=== PATIENT | male | born 1950 | race Caucasian/White ===

== ENCOUNTER 2018-09-29 12:54 | Inpatient (IN) ==
[2018-09-29] MEDS ORDERED: Naloxone 0.4 MG/ML INJ IVP PRN (15:47)
[2018-09-29] MEDS ORDERED: D5% in Water 1,000 ML IVC PRN (16:05)
[2018-09-29] MEDS ORDERED: Dextrose Gel 15 GM/37.5 ML TUBE PO PRN ×2 (16:05)
[2018-09-29] MEDS ORDERED: *HR* Dextrose 50 % in Water (Syg) 50 ML SYRINGE IVP PRN (16:05)
[2018-09-29 16:46] LABS: Hematocrit 27.1 % (37.5-50.1); Hemoglobin 8.3 g/dL (12.9-16.9)
--- NOTE | 2018-09-29 17:16 | Internal Med History&Physical ---
Date of Encounter: 09/29/18 Time of Encounter: 17:13 Internal Medicine - H&P: HPI Chief complaint: Weak; Hb of 7.2 Admitted From: Home Plans for Post Hospital Care: Home History of present illness: The patient is a 68-year-old male. It was today morning he woke up with difficulty breathing; his blood pressure was around 190 systolic. His gave him extra tablets for blood pressure control; in addition to his regular pills. He continued to be very weak; with dyspnea on exertion (when doing regular walking). He developed a weakness in his legs. Then, he was brought to [facility] emergency department for evaluation and treatment. He was recently hospitalized in our hospital with a suspected GI bleeding. Received a couple units of packed red blood cells. Upper and lower endoscopy was done. They did not show any source of bleeding. Diverticulosis of colon was found. The patient has had underlying adrenal insufficiency. He takes prednisone at 20 mg by mouth twice a day. He received 10 mg of dexamethasone in [place]. CT angiography of the chest has been done. It showed multifocal pneumonia. The patient received 1 dose of vancomycin and 1 dose of Levaquin. He has not had any fever or chills recently. Denies coughing and wheezing. He has not noticed any changes in his bowel movements pattern; have not seen any blood or black discoloration of stool recently. He denies urinary symptoms. PAST MEDICAL HX: He has had insulin-dependent type 2 diabetes mellitus, hypertension and diastolic heart failure. 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 He has a pacemaker inserted. PAST FAMILY HX: Positive for type 2 diabetes mellitus and hypertension. PAST SOCIAL HX: He has never used tobacco. Denies alcohol and illicit drug use. REVIEW OF SYSTEMS: All 14 organ systems were reviewed by me with the patient. Positive and pertinent negative findings are listed above. The rest of organ systems is negative. PHYSICAL EXAM: Skin: Free of rash and discoloration. Eyes: Sclera is white. There is no discharge from eyes. ENMT: Oral/pharyngeal mucosa is normal in appearance. There is no discharge from nose or ears. Respiratory: Normal breath sounds with no crackles and wheezes bilaterally. CV: Heart is regular with no gallop or murmur. GI: Abdomen is flat and soft with no palpable mass or visceromegaly. : There is no tenderness in patient's flanks bilaterally. Neuro exam: He has good strength in upper and lower extremities. He has normal eye movements. Psychiatric: He has normal affect. His thought process is appropriate to the situation. ADDITIONAL DATA: The patient had multiple blood tests done in [place]. The most important results are mentioned below. Hemoglobin was 7.2; was 9.0 on 09/20 (when he was leaving the hospital after previous hospitalization). He received 1 unit of packed red blood cells in [facility] emergency roomrepeated hemoglobin is 8.3. WBC was 9.5 thousand with platelet count of 90,000 (was 116,000 on 09/20). Pro time INR was 1.2. D-dimer was 4238. VBG was done. It showed pH of 7.52 with PCO2 of 25 and PO2 of 152. Electrolytes were normal. Creatinine was 1.08. Random glucose was 100. Liver function tests were normal. Troponin was checked it was 0.12. He had troponin of 0.35 on 09/17when she was here with severe anemia. Troponin was 0.15, when he was leaving the hospital from previous hospitalization. UA showed some blood. He did not show any features suggesting urinary tract infection. Chest x-ray showed new right lower lobe infiltrate (possible pneumonia). CT angiogram showed features of multifocal pneumonia; no evidence for pulmonary emboli. A/P: Symptomatic anemia. Possible GI bleed. The patient was transfused with 1 unit of packed red blood cells. I will be watching his H&H every 6 hours. I will present him to GI service tomorrow morning (when they are available). The patient will be on IV Protonix at 40 mg every 12 hours. He will be on clear liquids; will get him into and by mouth diet after midnight. He may have multifocal pneumonia. However he does not have any symptoms suggesting that diagnosis. Like I fever, chills or coughing/wheezing. However, he has had off and on chills for a few weeks. He is not hypoxic. I will continue IV vancomycin and IV Levaquin/Zithromaxstarted in [place]. He may have acute on chronic diastolic heart failure. He has high BNP of 1006. I will give him 1 dose of IV Lasix. I will repeat chest x-ray in the morning. He does have long-standing adrenal insufficiency secondary to [place]'s disease. He received 10 mg of dexamethasone. I will continue his prednisone at 10 mg by mouth twice a day. Type 2 diabetes mellitus, insulin-dependent. He will be on decreased dose of Levemir and when necessary Humalog. Past Med Surg Social Fam HX - Past Medical History Medical history: diabetes, hypertension, other Additional medical history: leyla's disease, pacemaker, stroke (2013) Psychiatric history: no psych history - Past Surgical History Surgical History: appendectomy, cholecystectomy Additional surgical history: neck surgery, eye surgery, kidney stone, bilat knee surgery, hernia surgery, lymph nodes removed - Social History Smoking Status: Never smoker Smokeless Tobacco Status: No Alcohol use: none Drug use: none Internal Medicine - H&P: Meds Carvedilol [Coreg] 12.5 mg PO BID 09/17/18 [History] Ergocalciferol (VITAMIN D2) [Vitamin D2] 50,000 unit PO WILLIAMSON@0900 09/17/18 [History] HYDROcodone/Acet 5/325 mg [[place] 5-325 mg] 1 tab PO Q4H PRN 09/17/18 [History] Ibuprofen [Motrin] 800 mg PO Q8H PRN 09/17/18 [History] Insulin ASPART [NovoLOG] 10 unit SQ TIDWM 09/17/18 [History] Insulin DETEMIR [Levemir Flextouch] 10 unit SQ HS 09/17/18 [History] Isosorbide MONOnitrate (24 HR) [Imdur] 30 mg PO DAILY 09/17/18 [History] Losartan [Cozaar] 25 mg PO DAILY 09/17/18 [History] Multivit-Min/Iron/Folic Acid/K [Adults Multivitamin Caplet] 1 each PO DAILY 09/17/18 [History] Pantoprazole Sodium [Protonix] 40 mg PO DAILY 09/17/18 [History] Potassium Chloride [K-Tab ER] 10 meq PO DAILY 09/17/18 [History] Tramadol HCl [Ultram] 50 mg PO Q4H PRN 09/17/18 [History] metFORMIN [Glucophage] 500 mg PO BIDWM 09/17/18 [History] predniSONE [Prednisone] 10 mg PO BID 09/17/18 [History] Magnesium Oxide [Magnesium] 400 mg PO DAILY 09/18/18 [History] Clopidogrel [Plavix] 75 mg PO DAILY 09/29/18 [History] Allergy/AdvReac Type Severity Reaction Status Date / Time atorvastatin [From Lipitor] Allergy Muscle Pain Verified 09/17/18 15:08 methimazole Allergy Muscle Pain Verified 09/18/18 16:35 - Constitutional Vitals: Temp Pulse Resp BP Pulse Ox 97.8 F 77 17 155/78 95 09/29/18 16:11 09/29/18 16:11 09/29/18 16:11 09/29/18 16:11 09/29/18 16:11 General appearance: Present: A&O X 3, no acute distress, answers questions appropriately Exam: xx Internal Med - H&P Results - Labs CBC & Chem 7: 09/29/18 16:22 Labs: Short CBC 09/29/18 Range/Units 16:22 Hgb 8.3 L (12.9-16.9) g/dL Hct 27.1 L (37.5-50.1) % - Assessment and Plan (1) Symptomatic anemia Current Visit: Yes Status: Acute (2) GI bleed Current Visit: No Status: Suspected Qualifiers: GI bleed type/associated pathology: unspecified gastrointestinal hemorrhage type Qualified Code(s): K92.2 - Gastrointestinal hemorrhage, unspecified (3) Multifocal pneumonia Current Visit: Yes Status: Acute (4) Adrenal insufficiency Current Visit: Yes Status: Chronic (5) Acute on chronic diastolic heart failure Current Visit: Yes Status: Acute (6) Uncontrolled hypertension Current Visit: Yes Status: Acute - Time Spent With Patient Total time spent is greater than 50% in coordination of care (as documented) at patient's floor/unit and/or counseling patient: 25 - 35 minutes
[2018-09-29] MEDS: *HR* HYDROcodone/Acet 5/325 mg TABLET PO PRN ×2 (17:35→21:50)
[2018-09-29] MEDS: Insulin LISPRO 300 UNITS/3 ML VIAL SQ SCH ×2 (17:35→20:53)
[2018-09-29] MEDS ORDERED: Furosemide 40 MG TABLET PO ONE (20:26)
[2018-09-29] MEDS: Pantoprazole 40 MG VIAL IVP SCH (20:53)
[2018-09-29] MEDS ORDERED: predniSONE 10 MG TABLET PO SCH (21:00)
[2018-09-29] MEDS ORDERED: Insulin DETEMIR 100 UNIT/ML X5UNITS SQ SCH (21:00)
[2018-09-29] MEDS: predniSONE 10 MG TABLET PO SCH (21:01)
[2018-09-29 22:48] LABS: Hematocrit 25.6 % (37.5-50.1); Hemoglobin 8.2 g/dL (12.9-16.9)
[2018-09-30] MEDS: Pantoprazole 40 MG VIAL IVP SCH ×2 (04:58→17:32)
[2018-09-30 05:12] LABS: Immature Granulocytes % 0.6 % (0-4)
[2018-09-30 05:14] LABS: Hematocrit 25.4 % (37.5-50.1); Hemoglobin 7.9 g/dL (12.9-16.9); Immature Platelets 5.1 % (1.1-6.1); Lymphocytes # 1.1 K/mcL (0.6-4.6); Lymphocytes % 16.2 %; Mean Corpuscular HGB Conc 31.1 g/dL (31.6-35.5); Mean Corpuscular Hemoglobin 29.2 pg (28.0-33.3); Mean Corpuscular Volume 93.7 fL (83.0-100.0); Mean Platelet Volume 11.8 fL (9.4-12.4); Monocytes # 0.4 K/mcL (0.0-1.3); Monocytes % 5.7 %; Neutrophils # 5.1 K/mcL (1.6-8.9); Red Blood Count 2.71 M/mcL (4.19-5.50); Segmented Neutrophils % 77.5 %
[2018-09-30 05:24] LABS: Platelet Count 79 K/mcL (140-400)
[2018-09-30 05:25] LABS: Platelet Estimate Decreased (Normal)
[2018-09-30 05:31] LABS: Alanine Aminotransferase 23 Units/L (7-52); Albumin 2.6 g/dL (3.5-5.7); Alkaline Phosphatase 83 Units/L (34-104); Aspartate Amino Transferase 23 Units/L (13-39); BUN/Creatinine Ratio 33 (6-26); Bilirubin,Direct 0.1 mg/dL (0.0-0.2); Bilirubin,Indirect 0.5 mg/dL (0.0-1.2); Bilirubin,Total 0.6 mg/dL (0.3-1.0); Blood Urea Nitrogen 30 mg/dL (8-23); Calcium 8.5 mg/dL (8.6-10.3); Carbon Dioxide 23 mEq/L (23-29); Chloride 110 mEq/L (98-107); Globulin 2.5 g/dL (2.4-3.5); Glucose 159 mg/dL (70-105); Magnesium 1.6 mg/dL (1.6-2.6); Osmolality,Calculated 300 (280-300); Potassium 3.7 mEq/L (3.5-5.1); Sodium 140 mEq/L (136-145); Total Protein 5.1 g/dL (6.4-8.9); eGFR For Non-African Americans > 60 (> 60)
[2018-09-30] MEDS: Insulin LISPRO 300 UNITS/3 ML VIAL SQ SCH ×4 (09:01→22:55)
[2018-09-30] MEDS: *HR* HYDROcodone/Acet 5/325 mg TABLET PO PRN ×2 (09:07→15:21)
[2018-09-30] MEDS: Levofloxacin 500 MG/100 ML 500 MG/100 ML BAG IVPB SCH (09:07)
[2018-09-30] MEDS: predniSONE 10 MG TABLET PO SCH ×3 (09:07→20:56)
[2018-09-30] MEDS: Magnesium Oxide 400 MG TABLET PO SCH (09:07)
[2018-09-30 10:33] LABS: Hematocrit 25.2 % (37.5-50.1); Hemoglobin 7.9 g/dL (12.9-16.9)
[2018-09-30] MEDS: traMADol 50 MG TABLET PO SCH ×2 (13:03→20:56)
[2018-09-30] MEDS: Furosemide 40 MG TABLET PO SCH (15:13)
--- NOTE | 2018-09-30 16:33 | Gastroenterology Consult Note ---
<ForbesGerald kowalski Rafael - Last Filed: 09/30/18 16:31> Date of Encounter: 09/30/18 Time of Encounter: 11:10 - Assessment and plan (1) Symptomatic anemia Current Visit: Yes Status: Acute Assessment and plan: Hgb 10.1 on 3/6, 8.3 on admission, and 7.9 today. Continue to monitor CBC and transfuse PRBC as needed. Check iron, ferritin, B12, and folate. Plan for enteroscopy once stable from multifocal PNA (likely Sunday). If enteroscopy negative, consider capsule endoscopy as outpatient. (2) Multifocal pneumonia Current Visit: Yes Status: Acute Assessment and plan: Management per primary team. - Time Spent With Patient Total time spent is greater than 50% in coordination of care (as documented) at patient's floor/unit and/or counseling patient: GI History of Present Illness - Data of Consult Patient: known to practice within the last 3 years Consult date: 09/30/18 Requesting Physician: Bishop Alston - Consult Narrative Reason for consult: Recurrent GI bleed History of present illness: Mr. Avila is a 68 year old male with PMHx of DM, HTN, leyla's disease, pacemaker, CVA, who presented with weakness and dyspnea. CTA chest with multifocal pneumonia. Patient was recently admitted from 09/17 to 09/20 with GI bleed. EGD and colonoscopy completed but did not show any source of bleeding. Hgb 10.1 on 3/6, 8.3 on admission, and 7.9 today. We were consulted to evaluate for recurrent GI bleed. Procedures: EGD 09/18/2018 Dr. Fenton: Normal Colonoscopy 09/19/2017 Dr. Fenton: Diverticulosis, internal hemorrhoids, 5 mm tubular adenoma, repeat 5 years. NSAIDs: Ibuprofen Anticoagulation: Plavix Past Med Surg Social Fam HX - Past Medical History Medical history: diabetes, hypertension, other Additional medical history: leyla's disease, pacemaker, stroke (2013) Psychiatric history: no psych history - Past Surgical History Surgical History: appendectomy, cholecystectomy Additional surgical history: neck surgery, eye surgery, kidney stone, bilat knee surgery, hernia surgery, lymph nodes removed - Social History Smoking Status: Never smoker Smokeless Tobacco Status: No Alcohol use: none Drug use: none - Gastrointestinal Gastrointestinal: Present: as per HPI - Constitutional Constitutional: as per HPI - EENT Eyes: as per HPI Ears: Present: as per HPI Nose, mouth and throat: Present: as per HPI - Cardiovascular Cardiovascular ROS: Present: as per HPI - Respiratory Respiratory IM: Present: as per HPI - Genitourinary Genitourinary: Absent: change in color, Urinary frequency - Neurological ROS Neurological GI: Present: as per HPI - Hematologic/Lymphatic Hematologic/Lymphatic pediatric: Present: as per HPI - Musculoskeletal Musculoskeletal ROS GI: Present: as per HPI - Integumentary Integumentary GI: Present: as per HPI - Psychiatric ROS Psychiatric GI: Present: as per HPI - Endocrine Endocrine IM: Present: as per HPI - Constitutional Vitals: Temp Pulse Resp BP Pulse Ox 97.9 F 76 15 125/71 98 09/30/18 15:12 09/30/18 15:12 09/30/18 15:12 09/30/18 15:12 09/30/18 15:12 General appearance: Present: cooperative, A&O X 3, no acute distress, answers questions appropriately - Head Head exam: Present: atraumatic, normocephalic - Eye Eye exam: Present: normal appearance, sclera anicteric - ENT ENT exam: Present: mucous membranes moist - Neck Neck exam general surgery: Present: normal inspection, trachea midline - Respiratory Respiratory exam: Present: decreased breath sounds, CTAB. Absent: rales, rhonchi - Cardiovascular Cardiovascular exam: Present: RRR, +S1, +S2 - GI/Abdominal GI/Abdominal exam: Present: soft, no peritoneal signs. Absent: distended, firm, guarding, tenderness - Rectal Rectal exam: Present: deferred - Extremities Exam Extremities exam: Present: warm - Neurological Exam Neurological exam: Present: no focal deficits - Psychiatric Psychiatric exam: Present: normal affect, normal mood - Skin Skin exam: Present: dry, intact, normal color, warm Results - Labs CBC & Chem 7: 09/30/18 09:58 09/30/18 04:34 Labs: Last Result Calcium 8.5 mg/dL (8.6-10.3) L 09/30/18 04:34 Entire Visit Hgb 7.9 g/dL (12.9-16.9) L 09/30/18 09:58 Hct 25.2 % (37.5-50.1) L 09/30/18 09:58 Total Bilirubin 0.6 mg/dL (0.3-1.0) 09/30/18 04:34 AST 23 Units/L (13-39) 09/30/18 04:34 ALT 23 Units/L (7-52) 09/30/18 04:34 - Impressions Impressions Chest X-Ray 09/30/18 07:00 IMPRESSION: Asymmetrical right perihilar airspace disease is not significantly changed. This is favored to represent pneumonia. Left basilar opacity, atelectasis versus edema/pneumonia. An atelectatic component is greater in the interval. Small bilateral pleural effusions. D/ / Teodoro Campos MD / Teodoro Campos MD Interpreting Provider: Teodoro Campos MD Consult Discharge Plan - Plan Referrals: Pancho Westfall DO [Primary Care Provider] - <Miladis Fenton - Last Filed: 09/30/18 17:29> Date of Encounter: 09/30/18 Time of Encounter: 14:00 - Time Spent With Patient Total time spent is greater than 50% in coordination of care (as documented) at patient's floor/unit and/or counseling patient: GI History of Present Illness - Data of Consult Requesting Physician: Bishop Alston - Consult Narrative History of present illness: Mr. Avila is a 68 year old male - Constitutional Vitals: Temp Pulse Resp BP Pulse Ox 97.9 F 76 15 125/71 98 09/30/18 15:12 09/30/18 15:12 09/30/18 15:12 09/30/18 15:12 09/30/18 15:12 Results - Labs CBC & Chem 7: 09/30/18 09:58 09/30/18 04:34 Labs: Last Result Calcium 8.5 mg/dL (8.6-10.3) L 09/30/18 04:34 Iron 42 mcg/dL (65-175) L 09/30/18 16:44 % Saturation 21 % (20-55) 09/30/18 16:44 Transferrin 146 mg/dL (203-362) L 09/30/18 16:44 Entire Visit Hgb 7.9 g/dL (12.9-16.9) L 09/30/18 09:58 Hct 25.2 % (37.5-50.1) L 09/30/18 09:58 Total Bilirubin 0.6 mg/dL (0.3-1.0) 09/30/18 04:34 AST 23 Units/L (13-39) 09/30/18 04:34 ALT 23 Units/L (7-52) 09/30/18 04:34 - Impressions Impressions Chest X-Ray 09/30/18 07:00 IMPRESSION: Asymmetrical right perihilar airspace disease is not significantly changed. This is favored to represent pneumonia. Left basilar opacity, atelectasis versus edema/pneumonia. An atelectatic component is greater in the interval. Small bilateral pleural effusions. D/ / Teodoro Campos MD / Teodoro Campos MD Interpreting Provider: Teodoro Campos MD - Attending Attestation I have personally performed a face to face evaluation on this patient. I have reviewed and agree with the care plan. History and Exam by me shows: Patient seen denies any blood in the stool. On examination alert and awake abdomen is benign. Assessment: Patient with multiple comorbidities admitted because of pneumonia and also found to be anemic. Had EGD colonoscopy done in the first week of September. Still anemic with further drop in hemoglobin no overt GI bleeding. Recommendation: Iron panel along with B12 and ferritin. We will consider enteroscopy once pneumonia symptoms are better and if unremarkable then will need cap endo as out pt
[2018-09-30 17:17] LABS: % Iron Saturation 21 % (20-55); Iron 42 mcg/dL (65-175); Transferrin 146 mg/dL (203-362)
[2018-09-30 17:35] LABS: Ferritin 714 ng/mL (20-250)
[2018-09-30 17:42] LABS: Folate > 22.3 ng/mL (3.0-16.0); Vitamin B12 317 pg/mL (250-1100)
[2018-09-30 19:16] LABS: Bilirubin,Urine Negative (Negative); Blood,Urine Large (Negative); Clarity,Urine Clear (Clear); Color,Urine Yellow (Yellow); Glucose,Urine (UA) Normal (Normal); Ketones,Urine Negative (Negative); Leukocyte Esterase,Urine Small (Negative); Nitrite,Urine Negative (Negative); PH,Urine 5.5 pH Units (5.0-8.0); Protein,Urine 30 mg/dL (Neg-Trace); Specific Gravity,Urine 1.029 (1.010-1.025); Urobilinogen,Urine Normal (Normal)
[2018-09-30 19:21] LABS: Hyaline Casts,Urine None Seen per lpf (None-Few); Squamous Epithelial Cell,Urine Moderate per lpf (None-Few)
[2018-09-30 19:43] LABS: Bacteria,Urine Few per hpf (None-Few); RBC,Urine 15-30 per hpf (0-3)
[2018-09-30] MEDS: Insulin DETEMIR 100 UNIT/ML X5UNITS SQ SCH (20:56)
--- NOTE | 2018-09-30 23:29 | Internal Med Progress Note ---
Hospitalist Progress Note - Encounter Date of Encounter: 09/30/18 Time of Encounter: 19:00 - Subjective Interval History: SUBJECTIVE: The patient feels pretty good. He has been advanced to diabetic diet today afternoonafter evaluation by GI service. Denies abdominal pain, nausea and vomiting. His last bowel movement was yesterday afternoonhe did not see any blood in the stool. Denies chest pain. Denies difficulty breathing; on room air oxygen. He does not have any coughing or wheezing. OBJECTIVE: Skin: Free of rash and discoloration. ENMT: Oral/pharyngeal mucosa is normal in appearance. Eyes: Sclera is white. There is no discharge from eyes. Respiratory: Normal breath sounds; no crackles or wheezes. CV: Heart is regular; no gallop or murmur. GI: Abdomen is soft and not tender. There is no palpable mass or visceromegaly. Neuro: There is no focal deficits. ADDITIONAL DATA: Hemoglobin is 7.9; 8.3 at admission (after transfusing him with 1 unit of packed red blood cells). Normal WBC. Platelet count is 79,000; he has chronic thrombocytopenia. Electrolytes are normal. Creatinine is 0.92. Fasting glucose is 159. ASSESSMENT AND PLAN: Symptomatic anemia/possible GI bleeding. See notes from GI service. They would like to do enteroscopy, when patient is medically stable. To monitor CBC closely. Imaging studies are suggesting diagnosis of multifocal pneumonia. Clinically, the patient does not have any symptoms/signs to support that diagnosis. He is on IV vancomycin and IV Levaquin. Adrenal insufficiency. He got 10 mg of dexamethasone before this admission. To continue prednisone at 10 mg by mouth 3 times a day (was taking 10 mg by mouth twice a day at home). Acute on chronic diastolic heart failure. I feel, that the changes on imaging studies could be caused by pulmonary congestion. I will keep him on daily Lasix and mild fluid restriction. I will repeat chest x-ray in 1-2 days. Uncontrolled hypertension. We will do adjustments to her antihypertensives. - Exam Vitals: Temp Pulse Resp BP Pulse Ox 98.2 F 77 15 139/72 97 09/30/18 22:44 09/30/18 22:44 09/30/18 22:44 09/30/18 22:44 09/30/18 22:44 Exam: xx - Assessment and Plan (1) Symptomatic anemia Current Visit: Yes Status: Acute (2) GI bleed Current Visit: No Status: Suspected (3) Multifocal pneumonia Current Visit: Yes Status: Acute (4) Adrenal insufficiency Current Visit: Yes Status: Chronic (5) Acute on chronic diastolic heart failure Current Visit: Yes Status: Acute (6) Uncontrolled hypertension Current Visit: Yes Status: Acute - Time Spent with Patient Total time spent is greater than 50% in coordination of care (as documented) at patient's floor/unit and/or counseling patient: 25 - 35 minutes Plan of Care Discussed with: patient Internal Medicine: Result - Labs CBC & Chem 7: 09/30/18 09:58 09/30/18 04:34 Labs: Short CBC 09/30/18 09/30/18 Range/Units 04:34 09:58 WBC 6.6 (4.3-11.1) K/mcL Hgb 7.9 L 7.9 L (12.9-16.9) g/dL Hct 25.4 L 25.2 L (37.5-50.1) % Plt Count 79 L (140-400) K/mcL Neutrophils # 5.1 (1.6-8.9) K/mcL BMP 09/30/18 04:34 Sodium 140 Potassium 3.7 Chloride 110 H Carbon Dioxide 23 BUN 30 H Creatinine 0.92 Glucose 159 H Calcium 8.5 L Liver Function 09/30/18 Range/Units 04:34 Total Bilirubin 0.6 (0.3-1.0) mg/dL Direct Bilirubin 0.1 (0.0-0.2) mg/dL AST 23 (13-39) Units/L ALT 23 (7-52) Units/L Alkaline Phosphatase 83 (34-104) Units/L Albumin 2.6 L (3.5-5.7) g/dL Urine 09/30/18 Range/Units 18:55 Urine Color Yellow (Yellow) Urine Clarity Clear (Clear) Urine pH 5.5 (5.0-8.0) pH Units Ur Specific [place] 1.029 H (1.010-1.025) Urine Protein 30 H (Neg-Trace) mg/dL Urine Glucose (UA) Normal (Normal) mg/dL - Impressions Impressions Chest X-Ray 09/30/18 07:00 IMPRESSION: Asymmetrical right perihilar airspace disease is not significantly changed. This is favored to represent pneumonia. Left basilar opacity, atelectasis versus edema/pneumonia. An atelectatic component is greater in the interval. Small bilateral pleural effusions. D/ / Teodoro Campos MD / Teodoro Campos MD Interpreting Provider: Teodoro Campos MD Consult Discharge Plan - Plan Referrals: Pancho Westfall DO [Primary Care Provider] - (2) GI bleed Qualifiers: GI bleed type/associated pathology: unspecified gastrointestinal hemorrhage t ype Qualified Code(s): K92.2 - Gastrointestinal hemorrhage, unspecified
[2018-10-01] MEDS: *HR* HYDROcodone/Acet 5/325 mg TABLET PO PRN ×3 (03:50→20:04)
[2018-10-01 04:18] LABS: Hemoglobin 7.5 g/dL (12.9-16.9); Red Cell Distribution Width 17.2 % (11.5-14.5)
[2018-10-01 04:20] LABS: Hematocrit 25.1 % (37.5-50.1); Immature Granulocytes % 0.5 % (0-4); Immature Platelets 4.5 % (1.1-6.1); Mean Corpuscular HGB Conc 29.9 g/dL (31.6-35.5); Mean Corpuscular Hemoglobin 28.2 pg (28.0-33.3); Mean Corpuscular Volume 94.4 fL (83.0-100.0); Mean Platelet Volume 11.7 fL (9.4-12.4); Monocytes # 0.6 K/mcL (0.0-1.3); Monocytes % 8.2 %; Neutrophils # 5.7 K/mcL (1.6-8.9); Red Blood Count 2.66 M/mcL (4.19-5.50); Segmented Neutrophils % 77.3 %
[2018-10-01 04:22] LABS: Platelet Count 82 K/mcL (140-400)
[2018-10-01 04:34] LABS: BUN/Creatinine Ratio 38 (6-26); Blood Urea Nitrogen 32 mg/dL (8-23); Calcium 8.4 mg/dL (8.6-10.3); Carbon Dioxide 22 mEq/L (23-29); Chloride 112 mEq/L (98-107); Glucose 222 mg/dL (70-105); Osmolality,Calculated 306 (280-300); Sodium 141 mEq/L (136-145); eGFR For Non-African Americans > 60 (> 60)
[2018-10-01] MEDS: Pantoprazole 40 MG VIAL IVP SCH (05:37)
[2018-10-01] MEDS: traMADol 50 MG TABLET PO SCH ×3 (08:03→23:15)
[2018-10-01] MEDS: Magnesium Oxide 400 MG TABLET PO SCH (08:03)
[2018-10-01] MEDS: predniSONE 10 MG TABLET PO SCH ×3 (08:03→20:03)
[2018-10-01] MEDS: Furosemide 40 MG TABLET PO SCH (08:03)
[2018-10-01] MEDS: Levofloxacin 500 MG/100 ML 500 MG/100 ML BAG IVPB SCH (08:04)
[2018-10-01] MEDS: Insulin LISPRO 300 UNITS/3 ML VIAL SQ SCH ×4 (08:11→20:04)
[2018-10-01] MEDS ORDERED: Lidocaine -MPF 2% 2 ML VIAL ONE ×2 (13:46→14:26)
[2018-10-01] MEDS ORDERED: *HR* Propofol 200 MG/20 ML VIAL IVP ONE (14:16)
--- NOTE | 2018-10-01 14:38 | Anesthesia Evaluation PreOp ---
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) Pulmonary History: Denies Any Significant HX CLEANER GREASER History: Denies Any Significant HX Other Medical History: Diabetes Type II, Other (Adrenal Insufficiency) Anesthesia History: No Prior Anesthetic Complications Alcohol Use: none Drug use: none Medications and Allergies Carvedilol [Coreg] 12.5 mg PO BID 09/17/18 [History] Ergocalciferol (VITAMIN D2) [Vitamin D2] 50,000 unit PO WILLIAMSON@0900 09/17/18 [History] HYDROcodone/Acet 5/325 mg [[place] 5-325 mg] 1 tab PO Q4H PRN 09/17/18 [History] Ibuprofen [Motrin] 800 mg PO Q8H PRN 09/17/18 [History] Insulin ASPART [NovoLOG] 10 unit SQ TIDWM 09/17/18 [History] Insulin DETEMIR [Levemir Flextouch] 10 unit SQ HS 09/17/18 [History] Isosorbide MONOnitrate (24 HR) [Imdur] 30 mg PO DAILY 09/17/18 [History] Losartan [Cozaar] 25 mg PO DAILY 09/17/18 [History] Multivit-Min/Iron/Folic Acid/K [Adults Multivitamin Caplet] 1 each PO DAILY 09/17/18 [History] Pantoprazole Sodium [Protonix] 40 mg PO DAILY 09/17/18 [History] Potassium Chloride [K-Tab ER] 10 meq PO DAILY 09/17/18 [History] Tramadol HCl [Ultram] 50 mg PO Q4H PRN 09/17/18 [History] metFORMIN [Glucophage] 1,000 mg PO BIDWM 09/17/18 [History] predniSONE [Prednisone] 10 mg PO BID 09/17/18 [History] Magnesium Oxide [Magnesium] 400 mg PO DAILY 09/18/18 [History] Clopidogrel [Plavix] 75 mg PO DAILY 09/29/18 [History] Gabapentin [Neurontin] 300 mg PO TID 09/30/18 [History] Allergy/AdvReac Type Severity Reaction Status Date / Time atorvastatin [From Lipitor] AdvReac Mild Muscle Pain Verified 09/30/18 18:17 lisinopril AdvReac Cough Verified 09/30/18 18:17 methimazole AdvReac Muscle Pain Verified 09/30/18 18:17 - Meds/Allergy Pre-op Review Medications Reviewed: Yes Allergies Reviewed: Yes Beta Blockers on Current Med List: No Anesthesia Results - Labs 10/01/18 03:16 10/01/18 03:16 - Imaging EKG: report reviewed (SR) Additional studies: ECHO 2019 EF 60%, no pulm htn Anesthesia Exam Vital Signs/O2 Sat/Glucose, Most Current Temp Pulse Resp BP Pulse Ox 10/01/18 11:19 98.4 F 73 16 136/71 98 Height: 5'9 Weight: 200 lbs NPO (# of Hours): MN Pain Scale: 0 - HEENT Pupil (Motor): Pupils equal, EOMI Oral Opening: Greater than 3 - CLEANER GREASER LOC: Oriented CLEANER GREASER Motor: Normal RUE, Normal LUE, Normal RLE, Normal LLE, Normal Face CLE[employer] GREASER Sensory: Normal: RUE, LUE, RLE, LLE, Face - Cardiac Rhythm: Regular Murmur: None JVD: No Carotid Bruit: No - Pulmonary Breath Sounds: bilateral Clear Respiratory Effort: Symmetrical Anesthesia Assess/Plan ASA Score: 4 (HTN Pacemaker DM Adrenal Insufficiency) Level of consciousness: Cooperative, Oriented Anesthetic Plan: MAC Autologous Blood: No Monitoring Plan: Standard Monitors Recovery Plan: Other (Discussed MAC, agrees to proceed)
[2018-10-01] MEDS ORDERED: *HR* Succinylcholine 200 MG/10 ML VIAL IVP ONE (14:53)
[2018-10-01] MEDS ORDERED: 0.9 % Sodium Chloride 1,000 ML IVC SCH (15:15)
[2018-10-01] MEDS: Insulin DETEMIR 100 UNIT/ML X5UNITS SQ SCH (20:03)
--- NOTE | 2018-10-01 23:08 | Internal Med Progress Note ---
Hospitalist Progress Note - Encounter Date of Encounter: 10/01/18 Time of Encounter: 19:00 - Subjective Interval History: SUBJECTIVE: The patient had EGD/enteroscopy today. It revealed nonbleeding gastric ulcer with no stigmata of bleeding. Denies abdominal pain, nausea and vomiting. Denies chest pain. Denies difficulty breathing; on room air oxygen. He does not have any coughing or wheezing. OBJECTIVE: Skin: Free of rash and discoloration. ENMT: Oral/pharyngeal mucosa is normal in appearance. Eyes: Sclera is white. There is no discharge from eyes. Respiratory: Normal breath sounds; no crackles or wheezes. CV: Heart is regular; no gallop or murmur. GI: Abdomen is soft and not tender. There is no palpable mass or visceromegaly. Neuro: There is no focal deficits. ADDITIONAL DATA: Hemoglobin is 7.5; 8.2 at admission. Electrolytes are normal. Creatinine is 0.85. Fasting glucose is 222.. ASSESSMENT AND PLAN: Symptomatic anemia/possible GI bleeding. See notes from GI service. The patient had EGD/enteroscopy today. See results mentioned by me above. He may need to have had video capsule studyto be decided by GI service. Imaging studies of the chest are suggesting diagnosis of multifocal pneumonia. Clinically, the patient does not have any symptoms/signs to support that diagnosis. He is on IV vancomycin and IV Levaquin. I am going to repeat chest x-ray tomorrow. Adrenal insufficiency. He got 10 mg of dexamethasone before this admission. To continue prednisone at 10 mg by mouth 3 times a day (was taking 10 mg by mouth twice a day at home). Acute on chronic diastolic heart failure. I feel, that the changes on imaging studies could be caused by pulmonary congestion. I will keep him on daily Lasix and mild fluid restriction. I would repeat his chest x-ray tomorrow. Uncontrolled hypertension. We will do adjustments to her antihypertensives. +++ The patient may benefit from pulmonary diseases consult, if he continues to have changes on chest x-ray and not having any symptoms typical for pneumonia. - Exam Vitals: Temp Pulse Resp BP Pulse Ox 98.3 F 84 16 132/83 95 10/01/18 19:05 10/01/18 19:05 10/01/18 19:05 10/01/18 19:05 03/19/19 19:05 Exam: xx - Assessment and Plan (1) Symptomatic anemia Current Visit: Yes Status: Acute (2) GI bleed Current Visit: No Status: Suspected (3) Multifocal pneumonia Current Visit: Yes Status: Acute (4) Adrenal insufficiency Current Visit: Yes Status: Chronic (5) Acute on chronic diastolic heart failure Current Visit: Yes Status: Acute (6) Uncontrolled hypertension Current Visit: Yes Status: Acute - Time Spent with Patient Total time spent is greater than 50% in coordination of care (as documented) at patient's floor/unit and/or counseling patient: 25 - 35 minutes Plan of Care Discussed with: patient Internal Medicine: Result - Labs CBC & Chem 7: 10/01/18 03:16 10/01/18 03:16 Labs: Short CBC 10/01/18 Range/Units 03:16 WBC 7.4 (4.3-11.1) K/mcL Hgb 7.5 L (12.9-16.9) g/dL Hct 25.1 L (37.5-50.1) % Plt Count 82 L (140-400) K/mcL Neutrophils # 5.7 (1.6-8.9) K/mcL BMP 10/01/18 03:16 Sodium 141 Potassium 4.0 Chloride 112 H Carbon Dioxide 22 L BUN 32 H Creatinine 0.85 Glucose 222 H Calcium 8.4 L Consult Discharge Plan - Plan Instructions: Peptic Ulcer (DC), Anemia (GEN) Referrals: Pancho Westfall DO [Primary Care Provider] - (2) GI bleed Qualifiers: GI bleed type/associated pathology: unspecified gastrointestinal hemorrhage type Qualified Code(s): K92.2 - Gastrointestinal hemorrhage, unspecified
[2018-10-02] MEDS: *HR* HYDROcodone/Acet 5/325 mg TABLET PO PRN ×3 (03:44→16:11)
[2018-10-02] MEDS: Pantoprazole 40 MG VIAL IVP SCH ×2 (05:50→17:38)
[2018-10-02 06:49] LABS: Immature Granulocytes % 0.5 % (0-4); Red Cell Distribution Width 17.1 % (11.5-14.5)
[2018-10-02 06:51] LABS: Basophils % 0.1 %; Hematocrit 29.7 % (37.5-50.1); Hemoglobin 8.5 g/dL (12.9-16.9); Immature Platelets 4.7 % (1.1-6.1); Lymphocytes # 1.2 K/mcL (0.6-4.6); Lymphocytes % 14.2 %; Mean Corpuscular HGB Conc 28.6 g/dL (31.6-35.5); Mean Corpuscular Hemoglobin 28.6 pg (28.0-33.3); Mean Platelet Volume 11.5 fL (9.4-12.4); Monocytes # 0.8 K/mcL (0.0-1.3); Monocytes % 10.1 %; Neutrophils # 6.2 K/mcL (1.6-8.9); Red Blood Count 2.97 M/mcL (4.19-5.50); Segmented Neutrophils % 75.1 %
[2018-10-02 06:58] LABS: Platelet Count 88 K/mcL (140-400)
[2018-10-02 07:12] LABS: BUN/Creatinine Ratio 35 (6-26); Blood Urea Nitrogen 32 mg/dL (8-23); Calcium 8.9 mg/dL (8.6-10.3); Carbon Dioxide 21 mEq/L (23-29); Chloride 112 mEq/L (98-107); Glucose 163 mg/dL (70-105); Osmolality,Calculated 306 (280-300); Potassium 4.1 mEq/L (3.5-5.1); Sodium 143 mEq/L (136-145); eGFR For Non-African Americans > 60 (> 60)
--- NOTE | 2018-10-02 08:17 | Internal Med Progress Note ---
Hospitalist Progress Note - Encounter Date of Encounter: 10/02/18 Time of Encounter: 08:15 - Subjective Interval History: Patient seen and examined this morning at be bedside. No acute overnight events. Denies any difficulty breathing, fever, nausea vomiting or diarrhea. Denies any blood in stool. - Exam Vitals: Temp Pulse Resp BP Pulse Ox 98.3 F 71 17 158/71 94 10/02/18 07:04 10/02/18 07:04 10/02/18 07:04 10/02/18 07:04 10/02/18 07:04 Exam: General: In no acute distress. Respiratory exam: CTAB. no accessory muscle use, rales, rhonchi, wheezes Cardiovascular exam: RRR, +S1, +S2. no murmur, gallop, rubs. GI/Abdominal exam: Non-tender, Non-distended, normal bowel sounds, soft, no peritoneal signs. Extremities exam: full ROM, 1+ pedal edema, warm, no calf tenderness Neurological exam: CN II-XII intact, AO X3, no focal deficits. Skin exam: No skin rash - Assessment and Plan (1) GI bleed Current Visit: No Status: Suspected (2) Symptomatic anemia Current Visit: Yes Status: Acute (3) Multifocal pneumonia Current Visit: Yes Status: Acute (4) Adrenal insufficiency Current Visit: Yes Status: Chronic (5) Uncontrolled hypertension Current Visit: Yes Status: Acute (6) Acute on chronic diastolic heart failure Current Visit: Yes Status: Acute - Summary of Assessment and Plan Summary of Assessment and Plan: Symptomatic anemia/possible GI bleeding - GI following. s/p EGD/enteroscopy. Hb stable. f/u path - may need to have had video capsule study outpatient Multifocal infiltrates on CTA and CXR. - Patient without fever, tachycardia or elevated WBC. However on prednisone at home for adrenal insufficiency. - Repeat CXR after lasix still with infiltrate however also getting fluids. CTA with possible cavitory lesion on Rt along with multiple infiltrate. ECHO recently without valvular abnormality. - Blood culture growing GP diplococci. Will repeat Blood culture, discontinue fluids, c.w vancomyin/levaquin and consult ID. Adrenal insufficiency - c/w prednisone Acute on chronic diastolic heart failure - c/w lasix for today. hypertension - c/w coreg and lasix. - Time Spent with Patient Total time spent is greater than 50% in coordination of care (as documented) at patient's floor/unit and/or counseling patient: Internal Medicine: Result - Labs CBC & Chem 7: 10/02/18 05:35 10/02/18 05:35 Labs: Short CBC 10/02/18 Range/Units 05:35 WBC 8.3 (4.3-11.1) K/mcL Hgb 8.5 L (12.9-16.9) g/dL Hct 29.7 L (37.5-50.1) % Plt Count 88 L (140-400) K/mcL Neutrophils # 6.2 (1.6-8.9) K/mcL BMP 10/02/18 05:35 Sodium 143 Potassium 4.1 Chloride 112 H Carbon Dioxide 21 L BUN 32 H Creatinine 0.92 Glucose 163 H Calcium 8.9 Consult Discharge Plan - Plan Instructions: Peptic Ulcer (DC), Anemia (GEN) Referrals: Pancho Westfall DO [Primary Care Provider] - (1) GI bleed Qualifiers: GI bleed type/associated pathology: unspecified gastrointestinal hemorrhage type Qualified Code(s): K92.2 - Gastrointestinal hemorrhage, unspecified
[2018-10-02] MEDS: Insulin LISPRO 300 UNITS/3 ML VIAL SQ SCH ×4 (08:18→21:33)
[2018-10-02] MEDS: traMADol 50 MG TABLET PO SCH ×3 (08:19→21:25)
[2018-10-02] MEDS: Levofloxacin 500 MG/100 ML 500 MG/100 ML BAG IVPB SCH (08:19)
[2018-10-02] MEDS: Magnesium Oxide 400 MG TABLET PO SCH (08:19)
[2018-10-02] MEDS: predniSONE 10 MG TABLET PO SCH ×3 (08:19→21:25)
[2018-10-02] MEDS: Furosemide 40 MG TABLET PO SCH (08:19)
[2018-10-02] MEDS ORDERED: Aminoglycoside Consult 1 EACH MC ONE (08:46)
--- NOTE | 2018-10-02 08:47 | Infectious Disease Consult ---
Date of Encounter: 10/02/18 Time of Encounter: 09:21 Assessment and Plan (1) Sepsis Status: Acute Assessment and plan: The patient had 2 sepsis criteria in the emergency department. Likely secondary to bacteremia and pneumonia. Improved. Tachycardia and tachypnea have resolved. Blood cultures drawn 09/29/18 are +2 out of 2 sets for gram-positive diaper cocci, the PCR is picked up enterococcus. Recommendations: Await blood cultures for final ID and sensitivities. Repeat blood cultures 2 sets. Check respiratory infectious panel. Check strep pneumococcal and legionella urinary antigens. Would not recommend MRSA screen as the patient has Larkin been on IV vancomycin for 3 days now. Get sputum culture if the patient is able to provide an adequate specimen. Recommend TTE. The patient will likely require a LIA prior to discharge. Recommend CT of the abdomen and pelvis with IV and PO contrast. Recommend pulmonology to evaluate. Place in airborne isolation. Place PPD. If negative in 48 hours, can discontinue. Continue vancomycin IV. Pharmacy to dose. Goal trough approximately 15. Continue Levaquin, but increase to 750 mg IV daily. Start Zosyn 3.375 g IV every 8 hours. Duration of treatment depends on the clinical picture. Monitor renal function for drug toxicity and dose adjust antibiotics. Qualifiers: Sepsis type: sepsis due to unspecified organism Qualified Code(s): A41.9 - Sepsis, unspecified organism (2) Bacteremia Status: Acute Assessment and plan: Positive organism: Enterococcus per PCR. Blood cultures drawn 09/29/18 are +2 out of 2 sets. Source: Unclear. Intra-abdominal versus pneumonia (less likely) versus other. Complicated due to the presence of a pacemaker and possible septic emboli to the lungs. No endocarditis stigmata noted on exam. Currently on vancomycin. (3) Pneumonia Status: Acute Assessment and plan: Location: Multifocal. Causative organism: Unclear. Chest x-ray showed a right lower lobe infiltrate. CTA of the chest showed multifocal pneumonia with a cavitary lung lesion in the left lower lobe. Repeat chest x-ray 09/30 showed asymmetrical right perihilar airspace disease and left basilar opacity. No evidence of aspiration noted on exam. Currently on vancomycin and Levaquin. Qualifiers: Pneumonia type: due to unspecified organism Laterality: bilateral Lung location: unspecified part of lung Qualified Code(s): J18.9 - Pneumonia, unspecified organism (4) Cavitary lesion of lung Status: Acute Assessment and plan: CTA of the chest 09/29/18 showed no definite urinary embolus, but did show multifocal pneumonia with more focal areas of consolidation in the right upper lobe and right lower lobe and nodular areas of consolidation in the right lower lobe containing a central area of lucency-cavitation. Etiology: Unclear. Infectious versus other. Low index of suspicion for TB, but given that the patient worked in a [employer] for several years and has had night sweats and weight loss, will need to rule out TB. Commend pulmonology to evaluate. (5) Elevated troponin Status: Acute Assessment and plan: Further workup and management per the primary team. (6) Anemia Status: Chronic Assessment and plan: Further workup and management per the primary team. Qualifiers: Anemia type: unspecified type Qualified Code(s): D64.9 - Anemia, u nspecified (7) Lactic acidosis Status: Resolved Assessment and plan: Likely secondary to sepsis. Resolved. (8) GI bleed Status: Suspected Assessment and plan: GI consulted. Status post EGD that showed a nonbleeding gastric ulcer. Qualifiers: GI bleed type/associated pathology: unspecified gastrointestinal hemorrhage type Qualified Code(s): K92.2 - Gastrointestinal hemorrhage, unspecified (9) Adrenal insufficiency Status: Chronic Assessment and plan: Currently on twice a day prednisone. (10) Diabetes mellitus Status: Acute Assessment and plan: Recommend strict glucose monitoring and control. 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 Infectious versus other. Recommend heme/onc to evaluate if thrombocytopenia persists once infection is appropriately treated. Infectious Disease HPI - Data of Consult Patient: new to practice Consult date: 10/02/18 Requesting Physician: Ramón Whitlock MD Primary Care Provider: Pancho Westfall DO - Consult Narrative Reason for consult: PNA, bacteremia History of present illness: Mr. 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 The patient was admitted to the hospital 09/29/18 for anemia, GI bleed, and pneumonia. We are consulted 10/02/18 for further workup and treatment recommendations for pneumonia and bacteremia. Briefly, the patient is a 68-year-old male with past medical history as stated above. The patient [facility] department with complaints of shortness of breath, chills, and headache. He also endorsed a recent history of grossly bloody stools and a previous workup for GI bleed that was negative. Upon arrival to the ER, he was afebrile. He was tachycardic and tachypneic. He was normotensive. Laboratory studies revealed a normal white blood cell count, but the patient had and thrombocytopenia. His renal function was normal. Lactic acid was mildly elevated at 2.3. Troponin was positive at 0.12. Urinalysis was positive for pyuria, but the culture came back negative. He is a chest x-ray that showed a right lower lobe infiltrate. He had a CTA of the chest that was negative for PE, but did show multifocal pneumonia with cavitation to the lower lobe. Blood cultures were obtained 2 sets. He was given vancomycin and Levaquin and transferred here for further evaluation. Since admission, the patient has remained afebrile and hemodynamically stable. His white blood cell count has remained normal. Repeat chest x-ray 09/30 showed asymmetrical right perihilar airspace disease and left basilar opacity. He was evaluated by GI who recommended enteroscopy once he was medically stable. He did undergo that testing on 10/01/18 that showed a nonbleeding gastric ulcer, but was otherwise essentially normal. Blood cultures obtained in the emergency department are +2 out of 2 sets for gram-positive type of cocci, the PCR has picked up enterococcus. Repeat blood cultures have been obtained and are pending. Currently, the patient is on vancomycin and Levaquin. We have been asked to evaluate and make further recommendations. During my exam today, the patient states that for the past 2 months he has had progressively worsening weakness and fatigue. He denies fevers, but reports night sweats and chills with rigors. States she has lost about 25 pounds in the past 3 or 4 months. Denies any headache. Reports chronic neck and back pain at her baseline. Denies any congestion, earache, or sore throat. Denies chest pain, shortness of breath, or cough. Denies nausea, vomiting, diarrhea, or constipation. Reports some intermittent blood in the stools over the past few weeks. Denies abdominal pain or urinary complaints. Denies oral thrush or new skin lesions. Denies any joint or extremity pain that are out of the ordinary for him. He had his pacemaker placed originally back in 1997 with 3 subsequent generator changes, with the last one being about 3 years ago. He does report some intermittent pain and discomfort to the generator site, but denies any redness or swelling or issues with infection previously. The patient lives at home with his . 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 He denies any tobacco, alcohol, or illicit drug use. Denies any chronic infectious diseases. Denies any recent travel. Denies any pet or animal exposures. CC: Ramón Whitlock MD Past Med Surg Social Fam HX - Past Medical History Attestation: Yes The following information was validated with the patient. Source: patient, old records reviewed, nursing notes reviewed Medical history: diabetes, hypertension, other Additional medical history: leyla's disease, pacemaker, stroke (2013) Psychiatric history: no psych history - Past Surgical History Surgical History: appendectomy, cholecystectomy Additional surgical history: neck surgery, eye surgery, kidney stone, bilat knee surgery, hernia surgery, lymph nodes removed - Social History Smoking Status: Never smoker Smokeless Tobacco Status: No Alcohol use: none Drug use: none Infectious Disease-CN:Meds Carvedilol [Coreg] 12.5 mg PO BID 09/17/18 [History] Ergocalciferol (VITAMIN D2) [Vitamin D2] 50,000 unit PO WILLIAMSON@0900 09/17/18 [History] HYDROcodone/Acet 5/325 mg [[place] 5-325 mg] 1 tab PO Q4H PRN 09/17/18 [History] Ibuprofen [Motrin] 800 mg PO Q8H PRN 09/17/18 [History] Insulin ASPART [NovoLOG] 10 unit SQ TIDWM 09/17/18 [History] Insulin DETEMIR [Levemir Flextouch] 10 unit SQ HS 09/17/18 [History] Isosorbide MONOnitrate (24 HR) [Imdur] 30 mg PO DAILY 09/17/18 [History] Losartan [Cozaar] 25 mg PO DAILY 09/17/18 [History] Multivit-Min/Iron/Folic Acid/K [Adults Multivitamin Caplet] 1 each PO DAILY 09/17/18 [History] Pantoprazole Sodium [Protonix] 40 mg PO DAILY 09/17/18 [History] Potassium Chloride [K-Tab ER] 10 meq PO DAILY 09/17/18 [History] Tramadol HCl [Ultram] 50 mg PO Q4H PRN 09/17/18 [History] metFORMIN [Glucophage] 1,000 mg PO BIDWM 09/17/18 [History] predniSONE [Prednisone] 10 mg PO BID 09/17/18 [History] Magnesium Oxide [Magnesium] 400 mg PO DAILY 09/18/18 [History] Clopidogrel [Plavix] 75 mg PO DAILY 09/29/18 [History] Gabapentin [Neurontin] 300 mg PO TID 09/30/18 [History] Allergy/AdvReac Type Severity Reaction Status Date / Time atorvastatin [From Lipitor] AdvReac Mild Muscle Pain Verified 09/30/18 18:17 lisinopril AdvReac Cough Verified 09/30/18 18:17 methimazole AdvReac Muscle Pain Verified 09/30/18 18:17 All systems: reviewed and no additional remarkable complaints except as stated Exam - Constitutional Vitals: Temp Pulse Resp BP Pulse Ox 98.3 F 71 17 158/71 94 10/02/18 07:04 10/02/18 07:04 10/02/18 07:04 10/02/18 07:04 10/02/18 07:04 Infectious Disease CN: Results - Labs CBC & Chem 7: 10/02/18 05:35 10/02/18 05:35 Serology: Serology 09/30/18 Range/Units 18:55 Urine Color Yellow (Yellow) Urine Clarity Clear (Clear) Urine pH 5.5 (5.0-8.0) pH Units Ur Specific [place] 1.029 H (1.010-1.025) Urine Protein 30 H (Neg-Trace) mg/dL Urine Glucose (UA) Normal (Normal) mg/dL Urine Ketones Negative (Negative) mg/dL Urine Blood Large H (Negative) Urine Nitrite Negative (Negative) Urine Bilirubin Negative (Negative) Urine Urobilinogen Normal (Normal) mg/dL Ur Leukocyte Esterase Small H (Negative) Urine Microscopic RBC 15-30 H (0-3) per hpf Urine Microscopic WBC 5-15 H (0-3) per hpf Ur Squamous Epith Cells Moderate H (None-Few) per lpf Urine Bacteria Few (None-Few) per hpf Hyaline Casts None Seen (None-Few) per lpf Urine Yeast Test Not Performed Consult Discharge Plan - Plan Instructions: Peptic Ulcer (DC), Anemia (GEN) Referrals: Pancho Westfall DO [Primary Care Provider] - - Attending Attestation I have personally performed a face to face evaluation on this patient. I have reviewed and agree with the care plan. History and Exam by me shows: This is an addendum to original report dictated by Colleen Faustin NP. Patient is a 68 year old gentleman with addisons disease on steroids 20-60mg daily in in the last few months came in with pneumonia. CT chest reveals a cavitary lesion and a mass like lesion. I did go over the CT with Dr. Higuera and there is concern for malignancy. Further more, patient and family tells me that hes been having low grade fevers, night sweats, cough and weight loss for a few months now. Patient also had thyroid issues and was on methimazole and it was stopped due to peripheral neuropathy. 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 Patient does not garden A/P: E faecalis bacteremia source not clear complicated by the fact that he has a pacemaker Pneumonia due to flu and rhinovirus Lung lesion concern for malignancy. TB on the diff specially with weakened immune system and exposure in the [employer] system. Fungal less likely GI bleed s/p EGD without active bleeding gastric ulcer DM2 Recommendations: Start Tamiflu Stop levofloxacin and vancomycin since no signs of atypical pneumonia or MRSA pneumonia Consult pulmonary Rule out TB Place in airborn isolation Will need a LIA Monitor BP closely since on steroids Consider TSH, free T4 and total T3?
[2018-10-02] MEDS ORDERED: Isovue-370 500 ML BOTTLE IVP ONE (09:27)
[2018-10-02] MEDS ORDERED: Tuberculin Skin Test (PPD) 5 TUB/0.1 ML VIAL ID ONE (09:27)
[2018-10-02] MEDS ORDERED: Levofloxacin 250 MG/50 ML 250 MG/50 ML BAG IVPB ONE (10:02)
[2018-10-02] MEDS: Piperacillin/Tazobactam 3.375 GM in 0.9 % Sodium Chloride Mini Bag 100 ML IVPB SCH ×2 (11:04→17:38)
[2018-10-02 13:18] LABS: Adenovirus Not Detected (Not Detect); Bordetella Pertussis Not Detected (Not Detect); Chlamydophila pneumoniae Not Detected (Not Detect); Coronavirus 229E Not Detected (Not Detect); Coronavirus HKU1 Not Detected (Not Detect); Coronavirus NL63 Not Detected (Not Detect); Coronavirus OC43 Not Detected (Not Detect); Human Metapneumovirus Not Detected (Not Detect); Human Rhinovirus/Enterovirus DETECTED (Not Detect); Influenza A Subtype 2009 H1 Not Detected (Not Detect); Influenza A Untypeable Not Detected (Not Detect); Influenza B Not Detected (Not Detect); Mycoplasma pneumoniae Not Detected (Not Detect); Parainfluenza Virus 1 Not Detected (Not Detect); Parainfluenza Virus 2 Not Detected (Not Detect); Parainfluenza Virus 3 Not Detected (Not Detect); Parainfluenza Virus 4 Not Detected (Not Detect); Respiratory Syncytial Virus Not Detected (Not Detect)
--- NOTE | 2018-10-02 16:28 | Pulmonology Consult Note ---
Date of Encounter: 10/03/18 Time of Encounter: 15:00 Assessment and Plan (1) Lung nodules Current Visit: Yes Status: Acute I reviewed CT chest personally and patient is low risk for malignancy, however this cannot be completely ruled out at this time and I have discussed with the patient and the family at the bedside the best option in my opinion would be a close monitoring and to treat his underlying pneumonia at this time and follow- up as outpatient. If there is no improvement then this will need to be biopsied. Other differential diagnosis could be pneumonia or even organizing pneumonia is a possibility. PET scan as outpatient will be reasonable as well. Thank you for consultation and patient will need follow-up CT in 6-8 weeks and can be seen in the office after that. (2) Cavitary lesion of lung Current Visit: Yes Status: Acute Patient has been on airborne isolation. (3) Multifocal pneumonia Current Visit: Yes Status: Acute History of Present Illness Consult date: 10/03/18 Requesting physician: Ramón Whitlock Reason for consult: lung mass, abnormal CXR/CT Chief complaint: Weakness History of present illness: This is pleasant 68-year-old male was presented to the hospital complaining of weakness and difficulty breathing. Patient has noticed weakness and dyspnea on exertion recently and he presented to emergency room for that reason. Subsequently was found to have cavitary lesion and CT chest was abnormal for that reason pulmonary was consulted. He has remote history of contact with patient with TB and he denies any recent travel. He denies any significant productive cough or wheezing and no hemoptysis. Patient has history of present insufficiency and he has received systemic steroid for that. Patient denies any exotic animals and no birds. He denies any night sweats or fever at this time. Denies any significant family history or smoking. Past Med Surg Social Fam HX - Past Medical History Medical history: diabetes, hypertension, other Additional medical history: leyla's disease, pacemaker, stroke (2014) Psychiatric history: no psych history - Past Surgical History Surgical History: appendectomy, cholecystectomy Additional surgical history: neck surgery, eye surgery, kidney stone, bilat knee surgery, hernia surgery, lymph nodes removed - Social History Smoking Status: Never smoker Smokeless Tobacco Status: No Alcohol use: none Drug use: none Medications and Allergies Carvedilol [Coreg] 12.5 mg PO BID 09/17/18 [History] Ergocalciferol (VITAMIN D2) [Vitamin D2] 50,000 unit PO WILLIAMSON@0900 09/17/18 [History] HYDROcodone/Acet 5/325 mg [[place] 5-325 mg] 1 tab PO Q4H PRN 09/17/18 [History] Ibuprofen [Motrin] 800 mg PO Q8H PRN 09/17/18 [History] Insulin ASPART [NovoLOG] 10 unit SQ TIDWM 09/17/18 [History] Insulin DETEMIR [Levemir Flextouch] 10 unit SQ HS 09/17/18 [History] Isosorbide MONOnitrate (24 HR) [Imdur] 30 mg PO DAILY 09/17/18 [History] Losartan [Cozaar] 25 mg PO DAILY 09/17/18 [History] Multivit-Min/Iron/Folic Acid/K [Adults Multivitamin Caplet] 1 each PO DAILY 09/17/18 [History] Pantoprazole Sodium [Protonix] 40 mg PO DAILY 09/17/18 [History] Potassium Chloride [K-Tab ER] 10 meq PO DAILY 09/17/18 [History] Tramadol HCl [Ultram] 50 mg PO Q4H PRN 09/17/18 [History] metFORMIN [Glucophage] 1,000 mg PO BIDWM 09/17/18 [History] predniSONE [Prednisone] 10 mg PO BID 09/17/18 [History] Magnesium Oxide [Magnesium] 400 mg PO DAILY 09/18/18 [History] Clopidogrel [Plavix] 75 mg PO DAILY 09/29/18 [History] Gabapentin [Neurontin] 300 mg PO TID 09/30/18 [History] Allergy/AdvReac Type Severity Reaction Status Date / Time atorvastatin [From Lipitor] AdvReac Mild Muscle Pain Verified 09/30/18 18:17 lisinopril AdvReac Cough Verified 09/30/18 18:17 methimazole AdvReac Muscle Pain Verified 09/30/18 18:17 All Systems: The remainder of the systems were reviewed and are negative Physical Examination Vital Signs: Vital Signs, Last 4 Hours Temp Pulse Resp BP Pulse Ox 10/02/18 15:59 98.4 F 81 17 161/76 94 10/02/18 12:48 98.3 F 76 17 148/78 94 General: Patient is in no acute distress. HEENT: Normocephalic atraumatic, pupils are equal round and reactive to light and accommodation, anicteric sclera, nares is patent, mucous membranes moist, no JVD, trachea is midline Cardiovascular: Normal sinus rhythm, S1 and S2 audible, no murmur or rubs Respiratory: Clear diminished to auscultation bilaterally. No acute distress. No wheezing. Patient not using accessory muscles. Abdomen: Soft, nontender, nondistended, positive bowel sounds in all 4 quadrants Extremities: Warm, dry, trace lower extremity edema. Normal capillary refill. Neuro: Alert and oriented and follows commands. Grossly no neuro deficits. Skin: Warm to touch : No obvious abnormalities. Psych: Normal Results - Laboratory Findings CBC and BMP: 10/03/18 03:28 10/03/18 03:28 Abnormal lab findings: Abnormal lab results RBC 2.97 M/mcL (4.19-5.50) L 10/02/18 05:35 Hgb 8.5 g/dL (12.9-16.9) L 10/02/18 05:35 Hct 29.7 % (37.5-50.1) L 10/02/18 05:35 MCHC 28.6 g/dL (31.6-35.5) L 10/02/18 05:35 RDW 17.1 % (11.5-14.5) H 10/02/18 05:35 Plt Count 88 K/mcL (140-400) L 10/02/18 05:35 Platelet Estimate Decreased (Normal) L 09/30/18 04:34 Chloride 112 mEq/L (98-107) H 10/02/18 05:35 Carbon Dioxide 21 mEq/L (23-29) L 10/02/18 05:35 BUN 32 mg/dL (8-23) H 10/02/18 05:35 BUN/Creatinine Ratio 35 (6-26) H 10/02/18 05:35 Glucose 163 mg/dL (70-105) H 10/02/18 05:35 POC Glucose 254 mg/dL (70-99) H 10/01/18 19:51 Calculated Osmolality 306 (280-300) H 10/02/18 05:35 Iron 42 mcg/dL (65-175) L 09/30/18 16:44 Transferrin 146 mg/dL (203-362) L 09/30/18 16:44 Ferritin 714 ng/mL (20-250) H 09/30/18 16:44 Serum Total Protein 5.1 g/dL (6.4-8.9) L 09/30/18 04:34 Albumin 2.6 g/dL (3.5-5.7) L 09/30/18 04:34 Albumin/Globulin Ratio 1.0 (1.1-2.2) L 09/30/18 04:34 Folate > 22.3 ng/mL (3.0-16.0) H 09/30/18 16:44 Ur Specific [place] 1.029 (1.010-1.025) H 09/30/18 18:55 Urine Protein 30 mg/dL (Neg-Trace) H 09/30/18 18:55 Urine Blood Large (Negative) H 09/30/18 18:55 Ur Leukocyte Esterase Small (Negative) H 09/30/18 18:55 Urine Microscopic RBC 15-30 per hpf (0-3) H 09/30/18 18:55 Urine Microscopic WBC 5-15 per hpf (0-3) H 09/30/18 18:55 Ur Squamous Epith Cells Moderate per lpf (None-Few) H 09/30/18 18:55 Vancomycin Trough 16 mcg/mL (5-10) H 10/01/18 10:11 Influenza A (H3) PCR DETECTED (Not Detect) A 10/02/18 10:55 Entero/Rhino (PCR) DETECTED (Not Detect) A 10/02/18 10:55 - Microbiology Findings Microbiology Findings: Microbiology, Last 48 Hours 10/02/18 11:38 Legionella Antigen - Final Urine,Clean Catch Streptococcus pneumoniae Antigen (M - Final 10/02/18 08:11 Blood Culture - Preliminary Peripheral Venipuncture Culture is incubating and being continuously monitored for growth. Final report to follow. 10/02/18 08:16 Blood Culture - Preliminary Peripheral Venipuncture Culture is incubating and being continuously monitored for growth. Final report to follow. - Diagnostic Findings CT scan - chest: report reviewed, image reviewed - Clinical Findings Intake & Output: Intake & Output 10/02/18 10/02/18 10/02/18 07:59 15:59 23:59 Intake Total 250 / 250 1560 / 1560 Output Total 150 / 150 Balance 100 / 100 1560 / 1560 Weight 91.4 kg Consult Discharge Plan - Plan Instructions: Peptic Ulcer (DC), Anemia (GEN) Referrals: Pancho Westfall DO [Primary Care Provider] -
[2018-10-02] MEDS: Insulin DETEMIR 100 UNIT/ML X5UNITS SQ SCH (21:25)
[2018-10-03] MEDS: Piperacillin/Tazobactam 3.375 GM in 0.9 % Sodium Chloride Mini Bag 100 ML IVPB SCH ×3 (02:00→18:27)
[2018-10-03] MEDS: *HR* HYDROcodone/Acet 5/325 mg TABLET PO PRN ×3 (02:11→19:44)
[2018-10-03 04:31] LABS: Hemoglobin 8.1 g/dL (12.9-16.9); Immature Granulocytes % 0.9 % (0-4); Lymphocytes # 0.9 K/mcL (0.6-4.6); Lymphocytes % 16.3 %; Mean Corpuscular Hemoglobin 28.5 pg (28.0-33.3); Mean Corpuscular Volume 95.1 fL (83.0-100.0); Monocytes # 0.6 K/mcL (0.0-1.3); Monocytes % 10.1 %; Neutrophils # 4.1 K/mcL (1.6-8.9); Red Blood Count 2.84 M/mcL (4.19-5.50); Segmented Neutrophils % 72.7 %
[2018-10-03 04:37] LABS: Platelet Count 72 K/mcL (140-400)
[2018-10-03 04:45] LABS: BUN/Creatinine Ratio 30 (6-26); Blood Urea Nitrogen 26 mg/dL (8-23); Calcium 8.5 mg/dL (8.6-10.3); Carbon Dioxide 24 mEq/L (23-29); Chloride 109 mEq/L (98-107); Glucose 187 mg/dL (70-105); Osmolality,Calculated 304 (280-300); Potassium 3.8 mEq/L (3.5-5.1); Sodium 142 mEq/L (136-145); eGFR For Non-African Americans > 60 (> 60)
[2018-10-03] MEDS: Pantoprazole 40 MG VIAL IVP SCH ×2 (06:00→16:43)
[2018-10-03] MEDS: Insulin LISPRO 300 UNITS/3 ML VIAL SQ SCH ×4 (07:45→21:19)
[2018-10-03 08:27] LABS: Thyroid Stimulating Hormone 0.047 mcIU/mL (0.340-5.600)
[2018-10-03] MEDS ORDERED: Levofloxacin 750 MG/150 ML 750 MG/150 ML BAG IVPB SCH (09:00)
[2018-10-03] MEDS: Furosemide 40 MG TABLET PO SCH (10:17)
[2018-10-03] MEDS: traMADol 50 MG TABLET PO SCH ×2 (10:18→14:16)
[2018-10-03] MEDS: Magnesium Oxide 400 MG TABLET PO SCH (10:18)
[2018-10-03] MEDS: predniSONE 10 MG TABLET PO SCH ×3 (10:18→19:44)
--- NOTE | 2018-10-03 11:46 | Infectious Disease Progress No ---
Date of Encounter: 10/03/18 Time of Encounter: 09:20 - Assessment and Plan (1) Sepsis Current Visit: Yes Status: Acute The patient had 2 sepsis criteria in the emergency department. Likely secondary to bacteremia and pneumonia. Improved. Tachycardia and tachypnea have resolved. Blood cultures drawn 09/29/18 are +2 out of 2 sets for Enterococcus faecalis, ampicillin sensitive. Repeat blood cultures drawn 10/02/18 are pending 2 sets. Recommendations: Await blood cultures for final ID and sensitivities. Get sputum culture if the patient is able to provide an adequate specimen. Recommend TTE. The patient will likely require a LIA prior to discharge. Continue airborne isolation. If PPD negative at 48 hours post-placement, can discontinue. Continue Zosyn 3.375 g IV every 8 hours. Continue tamiflu 75mg PO BID. Duration of treatment depends on the clinical picture. Monitor renal function for drug toxicity and dose adjust antibiotics. Qualifiers: Sepsis type: sepsis due to unspecified organism Qualified Code(s): A41.9 - Sepsis, unspecified organism (2) Bacteremia Current Visit: Yes Status: Acute Positive organism: Enterococcus faecalis, amp-sensitive. Blood cultures drawn 09/29/18 are +2 out of 2 sets. Repeat blood cultures drawn 10/02/18 are pending x 2 sets. Source: Unclear. Intra-abdominal versus pneumonia (less likely) versus other. Complicated due to the presence of a pacemaker and possible septic emboli to the lungs. No endocarditis stigmata noted on exam. CT abdomen and pelvis negative for source. Currently on Zosyn. (3) Pneumonia Current Visit: No Status: Acute Location: Multifocal. Causative organism: Influenza and Entero/Rhinovirus plus possible superimposed bacterial component. Chest x-ray showed a right lower lobe infiltrate. CTA of the chest showed multifocal pneumonia with a cavitary lung lesion in the left lower lobe. Repeat chest x-ray 09/30 showed asymmetrical right perihilar airspace disease and left basilar opacity. No evidence of aspiration noted on exam. Strep pneumo and Legionella UATs negative. MRSA screen negative. RIP positive for flu and Entero/Rhinovirus. Currently on Zosyn and Tamiflu. Qualifiers: Pneumonia type: due to unspecified organism Laterality: bilateral Lung location: unspecified part of lung Qualified Code(s): J18.9 - Pneumonia, unspecified organism (4) Cavitary lesion of lung Current Visit: Yes Status: Acute CTA of the chest 09/29/18 showed no definite urinary embolus, but did show multifocal pneumonia with more focal areas of consolidation in the right upper lobe and right lower lobe and nodular areas of consolidation in the right lower lobe containing a central area of lucency-cavitation. Etiology: Unclear. Infectious versus other. 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 PPD placed 10/02/18 at 1105. If negative 48 hours post-placement, can discontinue airborne isolation. Pulmonology consulted. Appreciate recommendations. (5) Elevated troponin Current Visit: No Status: Acute Further workup and management per the primary team. (6) Anemia Current Visit: No Status: Chronic Further workup and management per the primary team. Qualifiers: Anemia type: unspecified type Qualified Code(s): D64.9 - Anemia, unspecified (7) Lactic acidosis Current Visit: Yes Status: Resolved (8) GI bleed Current Visit: No Status: Suspected Likely secondary to sepsis. Resolved. Qualifiers: GI bleed type/associated pathology: unspecified gastrointestinal hemorrhage type Qualified Code(s): K92.2 - Gastrointestinal hemorrhage, unspecified (9) Adrenal insufficiency Current Visit: Yes Status: Chronic Currently on twice a day prednisone. (10) Diabetes mellitus Current Visit: No Status: Acute Recommend strict glucose monitoring and control. Qualifiers: Diabetes mellitus type: type 2 Diabetes mellitus prison insulin use: with prison use Diabetes mellitus complication status: without complication Qualified Code(s): E11.9 - Type 2 diabetes mellitus without complications; Z79.4 - snf (current) use of insulin (11) Thrombocytopenia Current Visit: Yes Status: Acute Etiology: Unclear. Infectious versus other. Recommend heme/onc to evaluate if thrombocytopenia persists once infection is appropriately treated. - Subjective Interval history: Patient seen and examined. No acute events noted overnight. Patient ambulating in the room. States she still feels very weak and fatigued. Denies any fevers or chills or rigors. Reports shortness of breath on exertion, but denies cough or chest pain. Denies nausea, vomiting, diarrhea, or constipation. Denies abdominal pain or urinary complaints. States his appetite is still not very good. Denies any oral thrush or new skin lesions. Infect Dis PN-Objective Data - Labs CBC & Chem 7: 10/04/18 08:42 10/04/18 08:42 Labs: Laboratory Results - last 24 hr 10/01/18 10/02/18 10/02/18 16:15 07:02 10:55 WBC RBC Hgb Hct MCV MCH MCHC RDW Plt Count MPV Immature Gran % Seg Neutrophils % Lymphocytes % Monocytes % Eosinophils % Basophils % Neutrophils # Lymphocytes # Monocytes # Eosinophils # Basophils # Immature Plt Fraction Sodium Potassium Chloride Carbon Dioxide BUN Creatinine Est GFR ( Amer) Est GFR (Non-Af Amer) BUN/Creatinine Ratio Glucose POC Glucose 172 H 164 H Calculated Osmolality Calcium TSH Free T4 Nasal Screen MRSA (PCR) Negative Chlamy pneumoniae PCR Adenovirus (PCR) B. pertussis DNA (PCR) B.parapertussis DNA PCR Coronavirus OC43 (PCR) Coronavirus HKU1 (PCR) Coronavirus 229E (PCR) Coronavirus NL63 (PCR) Human Metapneumovir PCR Influenza A (H1) PCR Influ A (H1N1/09) PCR Influenza A (H3) PCR Influenza A Untype (PCR) Influenza Type B (PCR) M.pneumoniae DNA (PCR) Parainfluenza 1 (PCR) Parainfluenza 2 (PCR) Parainfluenza 3 (PCR) Parainfluenza 4 (PCR) RSV (PCR) Entero/Rhino (PCR) 10/02/18 10/02/18 10/02/18 10:55 12:46 17:37 WBC RBC Hgb Hct MCV MCH MCHC RDW Plt Count MPV Immature Gran % Seg Neutrophils % Lymphocytes % Monocytes % Eosinophils % Basophils % Neutrophils # Lymphocytes # Monocytes # Eosinophils # Basophils # Immature Plt Fraction Sodium Potassium Chloride Carbon Dioxide BUN Creatinine Est GFR ( Amer) Est GFR (Non-Af Amer) BUN/Creatinine Ratio Glucose POC Glucose 138 H 145 H Calculated Osmolality Calcium TSH Free T4 Nasal Screen MRSA (PCR) Chlamy pneumoniae PCR Not Detected Adenovirus (PCR) Not Detected B. pertussis DNA (PCR) Not Detected B.parapertussis DNA PCR Not Detected Coronavirus OC43 (PCR) Not Detected Coronavirus HKU1 (PCR) Not Detected Coronavirus 229E (PCR) Not Detected Coronavirus NL63 (PCR) Not Detected Human Metapneumovir PCR Not Detected Influenza A (H1) PCR Not Detected Influ A (H1N1/09) PCR Not Detected Influenza A (H3) PCR DETECTED A Influenza A Untype (PCR) Not Detected Influenza Type B (PCR) Not Detected M.pneumoniae DNA (PCR) Not Detected Parainfluenza 1 (PCR) Not Detected Parainfluenza 2 (PCR) Not Detected Parainfluenza 3 (PCR) Not Detected Parainfluenza 4 (PCR) Not Detected RSV (PCR) Not Detected Entero/Rhino (PCR) DETECTED A 10/02/18 10/03/18 10/03/18 21:04 03:28 03:28 WBC 5.6 RBC 2.84 L Hgb 8.1 L Hct 27.0 L MCV 95.1 MCH 28.5 MCHC 30.0 L RDW 17.0 H Plt Count 72 L MPV 12.0 Immature Gran % 0.9 Seg Neutrophils % 72.7 Lymphocytes % 16.3 Monocytes % 10.1 Eosinophils % 0.0 Basophils % 0.0 Neutrophils # 4.1 Lymphocytes # 0.9 Monocytes # 0.6 Eosinophils # 0.0 Basophils # 0.0 Immature Plt Fraction 4.0 Sodium 142 Potassium 3.8 Chloride 109 H Carbon Dioxide 24 BUN 26 H Creatinine 0.87 Est GFR ( Amer) > 60 Est GFR (Non-Af Amer) > 60 BUN/Creatinine Ratio 30 H Glucose 187 H POC Glucose 235 H Calculated Osmolality 304 H Calcium 8.5 L TSH 0.047 L Free T4 1.48 Nasal Screen MRSA (PCR) Chlamy pneumoniae PCR Adenovirus (PCR) B. pertussis DNA (PCR) B.parapertussis DNA PCR Coronavirus OC43 (PCR) Coronavirus HKU1 (PCR) Coronavirus 229E (PCR) Coronavirus NL63 (PCR) Human Metapneumovir PCR Influenza A (H1) PCR Influ A (H1N1/09) PCR Influenza A (H3) PCR Influenza A Untype (PCR) Influenza Type B (PCR) M.pneumoniae DNA (PCR) Parainfluenza 1 (PCR) Parainfluenza 2 (PCR) Parainfluenza 3 (PCR) Parainfluenza 4 (PCR) RSV (PCR) Entero/Rhino (PCR) Cultures: Cultures 10/02/18 11:38 Legionella Antigen - Final Urine,Clean Catch Streptococcus pneumoniae Antigen (M - Final 10/02/18 08:11 Blood Culture - Preliminary Peripheral Venipuncture Culture is incubating and being continuously monitored for growth. Final report to follow. 10/02/18 08:16 Blood Culture - Preliminary Peripheral Venipuncture Culture is incubating and being continuously mon itored for growth. Final report to follow. Serology 10/02/18 10/02/18 09/30/18 Range/Units 10:55 10:55 18:55 Urine Color Yellow (Yellow) Urine Clarity Clear (Clear) Urine pH 5.5 (5.0-8.0) pH Units Ur Specific [place] 1.029 H (1.010-1.025) Urine Protein 30 H (Neg-Trace) mg/dL Urine Glucose (UA) Normal (Normal) mg/dL Urine Ketones Negative (Negative) mg/dL Urine Blood Large H (Negative) Urine Nitrite Negative (Negative) Urine Bilirubin Negative (Negative) Urine Urobilinogen Normal (Normal) mg/dL Ur Leukocyte Esterase Small H (Negative) Urine Microscopic RBC 15-30 H (0-3) per hpf Urine Microscopic WBC 5-15 H (0-3) per hpf Ur Squamous Epith Cells Moderate H (None-Few) per lpf Urine Bacteria Few (None-Few) per hpf Hyaline Casts None Seen (None-Few) per lpf Urine Yeast Test Not Performed Nasal Screen MRSA (PCR) Negative (Negative) Chlamy pneumoniae PCR Not Detected (Not Detect) Adenovirus (PCR) Not Detected (Not Detect) B. pertussis DNA (PCR) Not Detected (Not Detect) B.parapertussis DNA PCR Not Detected (Not Detect) Coronavirus OC43 (PCR) Not Detected (Not Detect) Coronavirus HKU1 (PCR) Not Detected (Not Detect) Coronavirus 229E (PCR) Not Detected (Not Detect) Coronavirus NL63 (PCR) Not Detected (Not Detect) Human Metapneumovir PCR Not Detected (Not Detect) Influenza A (H1) PCR Not Detected (Not Detect) Influ A (H1N1/09) PCR Not Detected (Not Detect) Influenza A (H3) PCR DETECTED A (Not Detect) Influenza A Untype (PCR) Not Detected (Not Detect) Influenza Type B (PCR) Not Detected (Not Detect) M.pneumoniae DNA (PCR) Not Detected (Not Detect) Parainfluenza 1 (PCR) Not Detected (Not Detect) Parainfluenza 2 (PCR) Not Detected (Not Detect) Parainfluenza 3 (PCR) Not Detected (Not Detect) Parainfluenza 4 (PCR) Not Detected (Not Detect) RSV (PCR) Not Detected (Not Detect) Entero/Rhino (PCR) DETECTED A (Not Detect) - Impressions Impressions Abdomen/Pelvis CT 10/02/18 13:00 IMPRESSION: 1. Trace free fluid in the upper pelvis, which is nonspecific in a male. No etiology is identified. Otherwise, no acute abnormality in the abdomen/pelvis. No drainable fluid collection or abscess. 2. A 1 cm cyst in the pancreatic tail. A follow-up pancreatic protocol CT or MRI in 12 months is recommended given the absence of comparison studies. 3. Multifocal pneumonia with small left and trace right pleural effusions and bibasilar pulmonary nodules. Findings appear without significant change from the chest CT obtained [address] follow-up is suggested, as previously reported. D/ / 10/02/2018 13:53:45 Conor Arenas MD / [email or web address] Interpreting Provider: Conor Arenas MD Exam - Constitutional Vitals: Temp Pulse Resp BP Pulse Ox 98.6 F 71 20 166/68 93 10/03/18 11:03 10/03/18 11:03 10/03/18 11:03 10/03/18 11:03 10/03/18 11:03 General appearance: average body habitus, cooperative, no acute distress - Head Head exam: Present: atraumatic, normal inspection, normocephalic - Eye Eye exam: Present: EOMI, normal appearance, PERRL Pupils: Present: normal accommodation Additional comments: No subconjunctival hemorrhage noted. - ENT ENT exam: Present: mucous membranes moist - Neck Neck exam: Present: normal inspection - Respiratory Respiratory exam: Present: CTAB. Absent: rales, respiratory distress, rhonchi, wheezes - Cardiovascular Cardiovascular exam: Present: RRR, +S1, +S2 - GI/Abdominal GI/Abdominal exam: Present: normal bowel sounds, soft. Absent: distended, tenderness - Extremities Exam Extremities exam: Present: normal inspection. Absent: joint swelling, pedal edema, tenderness - Neurological Exam Neurological exam: Present: alert, oriented X3, no focal deficits - Psychiatric Psychiatric exam: Present: normal affect, normal mood - Skin Skin exam: Present: dry, intact, normal color, warm Consult Discharge Plan - Plan Instructions: Peptic Ulcer (DC), Anemia (GEN) Referrals: Pancho Westfall DO [Primary Care Provider] - 10/11/18 9:00 am - Attending Attestation I have personally performed a face to face evaluation on this patient. I have reviewed and agree with the care plan. History and Exam by me shows: A/P: E faecalis bacteremia source not clear complicated by the fact that he has a pacemaker Pneumonia due to flu and rhinovirus Lung lesion concern for malignancy. TB on the diff specially with weakened immune system and exposure in the senior living system. Fungal less likely GI bleed s/p EGD without active bleeding gastric ulcer DM2 Recommendations: Start Tamiflu Stop levofloxacin and vancomycin since no signs of atypical pneumonia or MRSA pneumonia Consult pulmonary Rule out TB Place in airborn isolation Will need a LIA Monitor BP closely since on steroids Consider TSH, free T4 and total T3?
--- NOTE | 2018-10-03 14:51 | Internal Med Progress Note ---
Hospitalist Progress Note - Encounter Date of Encounter: 10/03/18 Time of Encounter: 08:12 - Subjective Interval History: Patient seen and examined this morning at bedside. No acute overnight events. Denies any difficulty breathing, chest pain. Denies any cough, bowel or urinary complaints. - Exam Vitals: Temp Pulse Resp BP Pulse Ox 98.6 F 71 20 166/68 93 10/03/18 11:03 10/03/18 11:03 10/03/18 11:03 10/03/18 11:03 10/03/18 11:03 Exam: General: In no acute distress. Respiratory exam: CTAB. no accessory muscle use, rales, rhonchi, wheezes Cardiovascular exam: RRR, +S1, +S2. no murmur, gallop, rubs. GI/Abdominal exam: Non-tender, Non-distended, normal bowel sounds, soft, no peritoneal signs. Extremities exam: full ROM, 2+ pedal edema, warm, no calf tenderness Neurological exam: CN II-XII intact, AO X3, no focal deficits. Skin exam: No skin rash - Assessment and Plan (1) GI bleed Current Visit: No Status: Suspected (2) Symptomatic anemia Current Visit: Yes Status: Acute (3) Multifocal pneumonia Current Visit: Yes Status: Acute (4) Adrenal insufficiency Current Visit: Yes Status: Chronic (5) Uncontrolled hypertension Current Visit: Yes Status: Acute (6) Acute on chronic diastolic heart failure Current Visit: Yes Status: Acute - Summary of Assessment and Plan Summary of Assessment and Plan: Symptomatic anemia/possible GI bleeding - GI following. s/p EGD/enteroscopy. Hb stable. f/u path - may need to have had video capsule study outpatient Multifocal infiltrates on CTA and CXR. - Patient without fever, tachycardia or elevated WBC. However on prednisone at home for adrenal insufficiency. - CTA with possible cavitory lesion on Rt along with multiple infiltrate. ECHO recently without valvular abnormality. - Blood culture growing E fecalis. ID and pulm following. Vancomycin and levaqin stopped. f/u repeat Blood culture. Now on Zosyn per ID. - Low change of malignancy but not rule out per pulm. To finish pneumonia treatment and follow up outpatient. - c/w Tamiflu for influenza. - Given cavitory lesion PPD was placed yesterday and started on airborne is olation. Bacteremia - Antibiotics as above - Will arrange for LIA tomorrow. Adrenal insufficiency - c/w prednisone Acute on chronic diastolic heart failure - c/w lasix for today. Will increase dose of lasix to BID IV given LE swelling slightly increased today. hypertension - c/w coreg and lasix. Thrombocytopenia - Will need outpatient follow up with hemonc if does not improve after treatment of flu/pneumonia - Time Spent with Patient Total time spent is greater than 50% in coordination of care (as documented) at patient's floor/unit and/or counseling patient: Internal Medicine: Result - Labs CBC & Chem 7: 10/03/18 03:28 10/03/18 03:28 Labs: Short CBC 10/03/18 Range/Units 03:28 WBC 5.6 (4.3-11.1) K/mcL Hgb 8.1 L (12.9-16.9) g/dL Hct 27.0 L (37.5-50.1) % Plt Count 72 L (140-400) K/mcL Neutrophils # 4.1 (1.6-8.9) K/mcL BMP 10/03/18 03:28 Sodium 142 Potassium 3.8 Chloride 109 H Carbon Dioxide 24 BUN 26 H Creatinine 0.87 Glucose 187 H Calcium 8.5 L Consult Discharge Plan - Plan Instructions: Peptic Ulcer (DC), Anemia (GEN) Referrals: Pancho Westfall DO [Primary Care Provider] - (1) GI bleed Qualifiers: GI bleed type/associated pathology: unspecified gastrointestinal hemorrhage type Qualified Code(s): K92.2 - Gastrointestinal hemorrhage, unspecified
[2018-10-03] MEDS ORDERED: Insulin DETEMIR 100 UNIT/ML X5UNITS SQ ONE (15:04)
[2018-10-03] MEDS ORDERED: Furosemide 40 MG/4 ML VIAL IVP ONE (17:00)
[2018-10-03] MEDS ORDERED: Insulin DETEMIR 100 UNIT/ML X5UNITS SQ SCH (21:00)
[2018-10-04] MEDS: Piperacillin/Tazobactam 3.375 GM in 0.9 % Sodium Chloride Mini Bag 100 ML IVPB SCH ×2 (02:44→08:12)
[2018-10-04] MEDS: *HR* HYDROcodone/Acet 5/325 mg TABLET PO PRN (02:44)
[2018-10-04] MEDS: traMADol 50 MG TABLET PO SCH ×3 (02:45→16:48)
[2018-10-04] MEDS: Pantoprazole 40 MG VIAL IVP SCH ×2 (06:25→16:51)
[2018-10-04] MEDS: Furosemide 40 MG TABLET PO SCH (08:13)
[2018-10-04] MEDS: Magnesium Oxide 400 MG TABLET PO SCH (08:13)
[2018-10-04] MEDS: predniSONE 10 MG TABLET PO SCH ×2 (08:14→16:49)
[2018-10-04] MEDS: Insulin LISPRO 300 UNITS/3 ML VIAL SQ SCH ×3 (08:18→17:05)
[2018-10-04 09:01] LABS: Basophils % 0.1 %; Eosinophils % 0.4 %; Hematocrit 29.5 % (37.5-50.1); Hemoglobin 9.1 g/dL (12.9-16.9); Lymphocytes # 1.7 K/mcL (0.6-4.6); Lymphocytes % 21.5 %; Mean Corpuscular HGB Conc 30.8 g/dL (31.6-35.5); Mean Corpuscular Hemoglobin 28.8 pg (28.0-33.3); Mean Corpuscular Volume 93.4 fL (83.0-100.0); Mean Platelet Volume 11.1 fL (9.4-12.4); Monocytes # 0.8 K/mcL (0.0-1.3); Monocytes % 10.2 %; Neutrophils # 5.4 K/mcL (1.6-8.9); Platelet Count 112 K/mcL (140-400); Red Blood Count 3.16 M/mcL (4.19-5.50); Red Cell Distribution Width 17.3 % (11.5-14.5); Segmented Neutrophils % 66.8 %
[2018-10-04 09:18] LABS: BUN/Creatinine Ratio 27 (6-26); Blood Urea Nitrogen 24 mg/dL (8-23); Calcium 8.9 mg/dL (8.6-10.3); Carbon Dioxide 30 mEq/L (23-29); Chloride 110 mEq/L (98-107); Glucose 91 mg/dL (70-105); Osmolality,Calculated 304 (280-300); Sodium 145 mEq/L (136-145); eGFR For Non-African Americans > 60 (> 60)
--- NOTE | 2018-10-04 11:51 | Infectious Disease Progress No ---
Date of Encounter: 10/04/18 Time of Encounter: 11:30 - Assessment and Plan (1) Sepsis Current Visit: Yes Status: Acute The patient had 2 sepsis criteria in the emergency department. Likely secondary to bacteremia and pneumonia. Improved. Tachycardia and tachypnea have resolved. Blood cultures drawn 09/29/18 are +2 out of 2 sets for Enterococcus faecalis, ampicillin sensitive. Repeat blood cultures drawn 10/02/18 are NGTD 2 sets. Recommendations: Await repeat blood cultures. Get sputum culture if the patient is able to provide an adequate specimen. LIA pending completion today. Discontinue airborne isolation. Start droplet precautions. Continue Zosyn 3.375 g IV every 8 hours. Continue tamiflu 75mg PO BID. Duration of treatment depends on the clinical picture. Monitor renal function for drug toxicity and dose adjust antibiotics. Qualifiers: Sepsis type: sepsis due to unspecified organism Qualified Code(s): A41.9 - Sepsis, unspecified organism (2) Bacteremia Current Visit: Yes Status: Acute Positive organism: Enterococcus faecalis, amp-sensitive. Blood cultures drawn 09/29/18 are +2 out of 2 sets. Repeat blood cultures drawn 10/02/18 are NGTD x 2 sets. Source: Unclear. Intra-abdominal versus pneumonia (less likely) versus other. Complicated due to the presence of a pacemaker and possible septic emboli to the lungs. No endocarditis stigmata noted on exam. CT abdomen and pelvis negative for source. Currently on Zosyn. (3) Pneumonia Current Visit: No Status: Acute Location: Multifocal. Causative organism: Influenza and Entero/Rhinovirus plus possible superimposed bacterial component. Chest x-ray showed a right lower lobe infiltrate. CTA of the chest showed multifocal pneumonia with a cavitary lung lesion in the left lower lobe. Repeat chest x-ray 09/30 showed asymmetrical right perihilar airspace disease and left basilar opacity. No evidence of aspiration noted on exam. Strep pneumo and Legionella UATs negative. MRSA screen negative. RIP positive for flu and Entero/Rhinovirus. Currently on Zosyn and Tamiflu. Qualifiers: Pneumonia type: due to unspecified organism Laterality: bilateral Lung location: unspecified part of lung Qualified Code(s): J18.9 - Pneumonia, unspecified organism (4) Cavitary lesion of lung Current Visit: Yes Status: Acute CTA of the chest 09/29/18 showed no definite urinary embolus, but did show multifocal pneumonia with more focal areas of consolidation in the right upper lobe and right lower lobe and nodular areas of consolidation in the right lower lobe containing a central area of lucency-cavitation. Etiology: Unclear. Infectious versus other. 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 PPD placed 10/02/18 at 1105. Negative. Okay to discontinue airborne isolation. Pulmonology consulted. Appreciate recommendations. (5) Elevated troponin Current Visit: No Status: Acute Further workup and management per the primary team. (6) Anemia Current Visit: No Status: Chronic Further workup and management per the primary team. Qualifiers: Anemia type: unspecified type Qualified Code(s): D64.9 - Anemia, unspecified (7) Lactic acidosis Current Visit: Yes Status: Resolved (8) GI bleed Current Visit: No Status: Suspected Likely secondary to sepsis. Resolved. Qualifiers: GI bleed type/associated pathology: unspecified gastrointestinal hemorrhage type Qualified Code(s): K92.2 - Gastrointestinal hemorrhage, unspecified (9) Adrenal insufficiency Current Visit: Yes Status: Chronic Currently on twice a day prednisone. (10) Diabetes mellitus Current Visit: No Status: Acute Recommend strict glucose monitoring and control. Qualifiers: Diabetes mellitus type: type 2 Diabetes mellitus superintendent terminal insulin use: with superintendent terminal use Diabetes mellitus complication status: without complication Qualified Code(s): E11.9 - Type 2 diabetes mellitus without complications; Z79.4 - MCC (current) use of insulin (11) Thrombocytopenia Current Visit: Yes Status: Acute Etiology: Unclear. Infectious versus other. Improved. Continue to trend. Recommend heme/onc to evaluate if thrombocytopenia persists once infection is appropriately treated. - Subjective Interval history: Patient seen and examined. No acute events noted overnight. Patient ambulating in the room. States she still feels very weak and fatigued. Denies any fevers or chills or rigors. Denies cough or chest pain and states shortness of breath resolved. Denies nausea, vomiting, diarrhea, or constipation. Reports loose stool this morning. Denies abdominal pain or urinary complaints. States his appetite is better, but he is currently NPO. Denies any oral thrush or new skin lesions. Infect Dis PN-Objective Data - Labs CBC & Chem 7: 10/04/18 08:42 10/04/18 08:42 Labs: Laboratory Results - last 24 hr 10/03/18 10/03/18 10/03/18 07:24 13:17 15:52 WBC RBC Hgb Hct MCV MCH MCHC RDW Plt Count MPV Immature Gran % Seg Neutrophils % Lymphocytes % Monocytes % Eosinophils % Basophils % Neutrophils # Lymphocytes # Monocytes # Eosinophils # Basophils # Sodium Potassium Chloride Carbon Dioxide BUN Creatinine Est GFR ( Amer) Est GFR (Non-Af Amer) BUN/Creatinine Ratio Glucose POC Glucose 143 H 96 175 H Calculated Osmolality Calcium 10/03/18 10/04/18 10/04/18 20:37 08:18 08:42 WBC 8.1 RBC 3.16 L Hgb 9.1 L Hct 29.5 L MCV 93.4 MCH 28.8 MCHC 30.8 L RDW 17.3 H Plt Count 112 L D MPV 11.1 Immature Gran % 1.0 Seg Neutrophils % 66.8 Lymphocytes % 21.5 Monocytes % 10.2 Eosinophils % 0.4 Basophils % 0.1 Neutrophils # 5.4 Lymphocytes # 1.7 Monocytes # 0.8 Eosinophils # 0.0 Basophils # 0.0 Sodium Potassium Chloride Carbon Dioxide BUN Creatinine Est GFR ( Amer) Est GFR (Non-Af Amer) BUN/Creatinine Ratio Glucose POC Glucose 119 H 79 Calculated Osmolality Calcium 10/04/18 10/04/18 08:42 11:27 WBC RBC Hgb Hct MCV MCH MCHC RDW Plt Count MPV Immature Gran % Seg Neutrophils % Lymphocytes % Monocytes % Eosinophils % Basophils % Neutrophils # Lymphocytes # Monocytes # Eosinophils # Basophils # Sodium 145 Potassium 3.0 L Chloride 110 H Carbon Dioxide 30 H BUN 24 H Creatinine 0.89 Est GFR ( Amer) > 60 Est GFR (Non-Af Amer) > 60 BUN/Creatinine Ratio 27 H Glucose 91 POC Glucose 73 Calculated Osmolality 304 H Calcium 8.9 Cultures: Cultures 10/02/18 11:38 Legionella Antigen - Final Urine,Clean Catch Streptococcus pneumoniae Antigen (M - Final 10/02/18 08:11 Blood Culture - Preliminary Peripheral Venipuncture Culture is incubating and being continuously monitored for growth. Final report to follow. 10/02/18 08:16 Blood Culture - Preliminary Peripheral Venipuncture Culture is incubating and being continuously monitored for growth. Final report to follow. Serology 10/02/18 10/02/18 09/30/18 Range/Units 10:55 10:55 18:55 Urine Color Yellow (Yellow) Urine Clarity Clear (Clear) Urine pH 5.5 (5.0-8.0) pH Units Ur Specific [place] 1.029 H (1.010-1.025) Urine Protein 30 H (Neg-Trace) mg/dL Urine Glucose (UA) Normal (Normal) mg/dL Urine Ketones Negative (Negative) mg/dL Urine Blood Large H (Negative) Urine Nitrite Negative (Negative) Urine Bilirubin Negative (Negative) Urine Urobilinogen Normal (Normal) mg/dL Ur Leukocyte Esterase Small H (Negative) Urine Microscopic RBC 15-30 H (0-3) per hpf Urine Microscopic WBC 5-15 H (0-3) per hpf Ur Squamous Epith Cells Moderate H (None-Few) per lpf Urine Bacteria Few (None-Few) per hpf Hyaline Casts None Seen (None-Few) per lpf Urine Yeast Test Not Performed Nasal Screen MRSA (PCR) Negative (Negative) Chlamy pneumoniae PCR Not Detected (Not Detect) Adenovirus (PCR) Not Detected (Not Detect) B. pertussis DNA (PCR) Not Detected (Not Detect) B.parapertussis DNA PCR Not Detected (Not Detect) Coronavirus OC43 (PCR) Not Detected (Not Detect) Coronavirus HKU1 (PCR) Not Detected (Not Detect) Coronavirus 229E (PCR) Not Detected (Not Detect) Coronavirus NL63 (PCR) Not Detected (Not Detect) Human Metapneumovir PCR Not Detected (Not Detect) Influenza A (H1) PCR Not Detected (Not Detect) Influ A (H1N1/09) PCR Not Detected (Not Detect) Influenza A (H3) PCR DETECTED A (Not Detect) Influenza A Untype (PCR) Not Detected (Not Detect) Influenza Type B (PCR) Not Detected (Not Detect) M.pneumoniae DNA (PCR) Not Detected (Not Detect) Parainfluenza 1 (PCR) Not Detected (Not Detect) Parainfluenza 2 (PCR) Not Detected (Not Detect) Parainfluenza 3 (PCR) Not Detected (Not Detect) Parainfluenza 4 (PCR) Not Detected (Not Detect) RSV (PCR) Not Detected (Not Detect) Entero/Rhino (PCR) DETECTED A (Not Detect) Exam - Constitutional Vitals: Temp Pulse Resp BP Pulse Ox 98.3 F 77 16 162/71 94 10/04/18 11:19 10/04/18 11:19 10/04/18 11:19 10/04/18 11:19 10/04/18 11:19 General appearance: average body habitus, cooperative, no acute distress - Head Head exam: Present: atraumatic, normal inspection, normocephalic - Eye Eye exam: Present: EOMI, normal appearance, PERRL Pupils: Present: normal accommodation Additional comments: No subconjunctival hemorrhage noted. - ENT ENT exam: Present: mucous membranes moist - Neck Neck exam: Present: normal inspection - Respiratory Respiratory exam: Present: CTAB. Absent: rales, respiratory distress, rhonchi, wheezes - Cardiovascular Cardiovascular exam: Present: RRR, +S1, +S2 - GI/Abdominal GI/Abdominal exam: Present: normal bowel sounds, soft. Absent: distended, tenderness - Extremities Exam Extremities exam: Present: normal inspection, pedal edema (1+ BLE). Absent: joint swelling, tenderness - Neurological Exam Neurological exam: Present: alert, oriented X3, no focal deficits - Psychiatric Psychiatric exam: Present: normal affect, normal mood - Skin Skin exam: Present: dry, intact, normal color, warm Additional comments: No endocarditis stigmata noted. Consult Discharge Plan - Plan Instructions: Peptic Ulcer (DC), Anemia (GEN) Referrals: Pancho Westfall DO [Primary Care Provider] - 10/11/18 9:00 am - Attending Attestation I have personally performed a face to face evaluation on this patient. I have reviewed and agree with the care plan. 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 The official report is pending but I spoke with Dr. Graff from cardiology myself Enterococcus faecalis bacteremia 2 out of 2 sets positive 09/29/2018. Repeat cultures 10/02/2018 no growth Pneumonia secondary to flu and rhinovirus Pulmonary lesion. TB was ruled out. Concern for malignancy Recommendations: I have a long discussion with the and daughter who were at bedside. I explained the seriousness of the situation. Patient is to be transferred to [facility] since we do not do valve surgeries and we do not remove pacemaker and leads. Conversation I think continued on Dr. Whitlock came in and everybody's on the same page and they will request transfer. prefers [facility] [place]. In the meantime while patient is here I will DC the Zosyn start him on Rocephin and ampicillin. I will repeat cultures again. I do not know if this patient will be a surgical candidate right now or first they will treat with aggressive antibiotics remove the pacemaker and then a later to surgery. I also discussed with Dr. Graff. Continue Tamiflu
[2018-10-04] MEDS ORDERED: 0.9 % Sodium Chloride 500 ML IVC ONE (12:42)
[2018-10-04] MEDS ORDERED: Lidocaine Viscous Oral Soln 15 ML SOLUTION MM PRN (12:42)
[2018-10-04] MEDS: *HR* Midazolam HCl 5 MG/5 ML VIAL IVP PRN ×2 (13:25→13:30)
[2018-10-04] MEDS: *HR* FentaNYL (PF) 100 MCG/2 ML VIAL IVP PRN ×2 (13:25→13:30)
[2018-10-04] MEDS ORDERED: Ampicillin 2 GM in 0.9 % Sodium Chloride Mini Bag 100 ML IVPB SCH (16:00)
[2018-10-04 16:24] VITALS: BP 154/72
--- NOTE | 2018-10-04 17:25 | Discharge Summary ---
- NOTES TO OUTPATIENT PROVIDER Notes to Outpatient Provider: Patient transferred to [facility] for further treatment for endocarditis along with a pacemaker removal. 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 We will need follow-up with oncology continues to have thrombocytopenia as well as gastroenterology for video capsule endoscopy. Orders not resulted at time of discharge: Pending orders 10/02/18 08:11 Culture,Blood [BC] Stat 10/02/18 09:27 Culture,Sputum with Gram Stain [RM] Routine Date of Encounter: 10/04/18 Time of Encounter: 17:23 - Discharge Diagnosis (1) GI bleed Priority: Primary Status: Suspected Qualifiers: GI bleed type/associated pathology: unspecified gastrointestinal hemorrhage type Qualified Code(s): K92.2 - Gastrointestinal hemorrhage, unspecified (2) Symptomatic anemia Priority: Primary Status: Acute (3) Multifocal pneumonia Priority: Primary Status: Acute (4) Adrenal insufficiency Priority: Secondary Status: Chronic (5) Uncontrolled hypertension Priority: Secondary Status: Acute (6) Acute on chronic diastolic heart failure Priority: Primary Status: Acute (7) Endocarditis Priority: Secondary Status: Acute Qualifiers: Endocarditis type: infective Infective endocarditis organism: bacterial Chronicity: unspecified Qualified Code(s): I33.0 - Acute and subacute infective endocarditis (8) Bacteremia Priority: Primary Status: Acute (9) Sepsis Priority: Primary Status: Acute Qualifiers: Sepsis type: sepsis due to unspecified organism Qualified Code(s): A41.9 - Sepsis, unspecified organism (10) Thrombocytopenia Priority: Secondary Status: Acute (11) Diabetes mellitus Priority: Secondary Status: Acute Qualifiers: Diabetes mellitus type: type 2 Diabetes mellitus retirement insulin use: with sales service representative use Diabetes mellitus complication status: without complication Qualified Code(s): E11.9 - Type 2 diabetes mellitus without complications; Z79.4 - detention (current) use of insulin (12) Hypokalemia Priority: Secondary Status: Acute Hospital course: Mr. Avila is a 68 year old male past medical history of diabetes, hypertension, diastolic heart failure, adrenal insufficiency, pacemaker, came from [facility] for symptomatic anemia with possible GI bleed. He received blood transfusion and had gastroenterology evaluation and had upper endoscopies which showed nonbleeding gastric ulcers. His Protonix Was Continued and His Hemog lobin Remained Stable. Per GI Would Need Outpatient Video Capsule Endoscopy. He Was Also Found to Have Multifocal Pneumonia for Which She Was on Antibiotics Vancomycin and Levaquin and Azithromycin at [facility] Which Were Continued. He Was Also Continued on Prednisone Which She Takes for Adrenal Insufficiency. Patient had CTA which showed multifocal pneumonia with cavitary lesion versus lucency. Patient's recent echocardiography was without any valvular abnormality. Patient did have a blood culture positive for enterococci. Infectious disease consult was obtained. He was continued on vancomycin and Levaquin and started on Zosyn. He was also found to have flu and was started on Tamiflu. His Levaquin and vancomycin were stopped. Pulmonology consult was also obtained who felt the possibility of malignancy was less however not completely ruled out and would need outpatient follow-up. Patient had LIA done to rule out endocarditis which did confirm endocarditis of mitral and aortic valve. Patient would need removal of his pacemaker leads per Infectious disease for which he would need tertiary care center transfer. Patient agreeable. Antibiotics not switched to ampicillin and ceftriaxone. Patient also has thrombocytopenia with needs to be followed once infection resolves. He had a PPD testing for TB which resulted negative. Patient awaiting swing bed for transfer. Discharge discussed with: patient, family, nurse, social work, risk and insurance consultant - Time Spent with Patient Total time spent providing and/or coordinating discharge services: Time spent: Greater than 30 minutes (42) - Discharge Medications Prescriptions: New Oseltamivir [Tamiflu] 75 mg PO BID capsule Furosemide [Lasix] 40 mg PO DAILY tablet Continue Magnesium Oxide [Magnesium] 400 mg PO DAILY Clopidogrel [Plavix] 75 mg PO DAILY Gabapentin [Neurontin] 300 mg PO TID Potassium Chloride [K-Tab ER] 10 meq PO DAILY Multivit-Min/Iron/Folic Acid/K [Adults Multivitamin Caplet] 1 each PO DAILY Ergocalciferol (VITAMIN D2) [Vitamin D2] 50,000 unit PO WILLIAMSON@0900 Insulin DETEMIR [Levemir Flextouch] 10 unit SQ HS Insulin ASPART [NovoLOG] 10 unit SQ TIDWM Pantoprazole Sodium [Protonix] 40 mg PO DAILY Losartan [Cozaar] 25 mg PO DAILY Tramadol HCl [Ultram] 50 mg PO Q4H PRN PRN Reason: Pain Ibuprofen [Motrin] 800 mg PO Q8H PRN PRN Reason: Pain HYDROcodone/Acet 5/325 mg [[place] 5-325 mg] 1 tab PO Q4H PRN PRN Reason: Pain predniSONE [Prednisone] 10 mg PO BID metFORMIN [Glucophage] 1,000 mg PO BIDWM Isosorbide MONOnitrate (24 HR) [Imdur] 30 mg PO DAILY Carvedilol [Coreg] 12.5 mg PO BID Home Medications: Carvedilol [Coreg] 12.5 mg PO BID 09/17/18 [History] Ergocalciferol (VITAMIN D2) [Vitamin D2] 50,000 unit PO WILLIAMSON@0900 09/17/18 [History] HYDROcodone/Acet 5/325 mg [[place] 5-325 mg] 1 tab PO Q4H PRN 09/17/18 [History] Ibuprofen [Motrin] 800 mg PO Q8H PRN 09/17/18 [History] Insulin ASPART [NovoLOG] 10 unit SQ TIDWM 09/17/18 [History] Insulin DETEMIR [Levemir Flextouch] 10 unit SQ HS 09/17/18 [History] Isosorbide MONOnitrate (24 HR) [Imdur] 30 mg PO DAILY 09/17/18 [History] Losartan [Cozaar] 25 mg PO DAILY 09/17/18 [History] Multivit-Min/Iron/Folic Acid/K [Adults Multivitamin Caplet] 1 each PO DAILY 09/17/18 [History] Pantoprazole Sodium [Protonix] 40 mg PO DAILY 09/17/18 [History] Potassium Chloride [K-Tab ER] 10 meq PO DAILY 09/17/18 [History] Tramadol HCl [Ultram] 50 mg PO Q4H PRN 09/17/18 [History] metFORMIN [Glucophage] 1,000 mg PO BIDWM 09/17/18 [History] predniSONE [Prednisone] 10 mg PO BID 09/17/18 [History] Magnesium Oxide [Magnesium] 400 mg PO DAILY 09/18/18 [History] Clopidogrel [Plavix] 75 mg PO DAILY 09/29/18 [History] Gabapentin [Neurontin] 300 mg PO TID 09/30/18 [History] Furosemide [Lasix] 40 mg PO DAILY tablet 10/04/18 [Rx] Oseltamivir [Tamiflu] 75 mg PO BID capsule 10/04/18 [Rx] Allergies/Adverse Reactions: Allergy/AdvReac Type Severity Reaction Status Date / Time atorvastatin [From Lipitor] AdvReac Mild Muscle Pain Verified 09/30/18 18:17 lisinopril AdvReac Cough Verified 09/30/18 18:17 methimazole AdvReac Muscle Pain Verified 09/30/18 18:17 Date of admission: 10/02/18 14:18 Primary care physician: Pancho Westfall DO Consults: 09/30/18 08:28 Consult to Gastroenterology [CONS] Routine Consulting Provider: Gastroenterology Colleen Reason for Consult: RECURRENT GI BLEED, SOURCE UNKNOWN... Time Notified: 08:15 Call Completed: Yes 10/01/18 12:31 Consult to Occupational Therapy [CONS] Routine Comment: Evaluate, develop and implement POC Reason for Consult: Evaluation Does patient have active BEDREST order?: No Is patient medically & hemodynamically stable?: Yes Consult to Physical Therapy [CONS] Routine Comment: Evaluate, develop and implement POC Reason for Consult: Evaluation Does patient have active BEDREST order?: No Is patient medically & hemodynamically stable?: Yes 10/02/18 08:27 Consult to Infectious Diseases [CONS] Routine Consulting Provider: Infectious Disease Colleen Reason for Consult: immunocompromised, Multifocal infiltrate, Gram positive bacteremia Call Completed: Yes 10/02/18 14:57 Consult to Pulmonology [CONS] Routine Consulting Provider: Pulm [facility] [place] Reason for Consult: multifocal infiltrate Call Completed: Yes Discharging clinician: Ramón Whitlock - Constitutional Vitals: Temp Pulse Resp BP Pulse Ox 98.0 F 72 154 154/72 98 10/04/18 16:21 10/04/18 16:21 10/04/18 16:21 10/04/18 16:21 10/04/18 16:21 Exam: General: In no acute distress. Respiratory exam: CTAB. no accessory muscle use, rales, rhonchi, wheezes Cardiovascular exam: RRR, +S1, +S2. no murmur, gallop, rubs. GI/Abdominal exam: Non-tender, Non-distended, normal bowel sounds, soft, no peritoneal signs. Extremities exam: full ROM, 2+ pedal edema, warm, no calf tenderness Neurological exam: CN II-XII intact, AO X3, no focal deficits. Skin exam: No skin rash - Patient Status Disposition: Transfer Hospital Swing Bed Condition: Fair - Discharge Instructions Instructions: Peptic Ulcer (DC), Anemia (GEN) Follow Up With: Pancho Westfall DO [Primary Care Provider] - 10/11/18 9:00 am
[2018-10-04] MEDS ORDERED: cefTRIAXone 2,000 MG in Water for inj. (sterile) 20 ML 20 ML IVP SCH (18:00)
== END 2018-10-04 19:15 | disposition other institution (70) | DRG 871 ==
LOC: 3BNU → SUATTDRO 14:31 → 3BNU 10-02 13:42
PROVIDERS: ADMIT Internal Medicine; ATTEND Internal Medicine
PROC: ENDOEBX (2018-10-01 14:30)